=== PATIENT | male | born 1935 | race African-American/Black ===

== ENCOUNTER 2016-12-30 19:36 | Inpatient (IN) | payer OTHER ==
[~2016-12-30] VITALS: Ht 185.4 cm; Wt 88.5 kg
[~2016-12-30 19:36] MED LIST: Albuterol ud Inhalation HHN ONE; B COMPLEX1 EACH ORAL; Ipratropium 0.02% Inh Soln 2.5ml UD HHN ONE; NORVASC2.5 MG ORAL; OMEPRAZOLE20 M3 ORAL; PRADAXA75 MG ORAL; Pantoprazole Inj IV ONE; UNOBMED
[2016-12-30 20:08] LABS: EOSINOPHILS % (AUTO) 0.1 % (0.0-3.0); LYMPHOCYTES % (AUTO) 13.3 % (20.0-45.0); MEAN CORPUSCULAR HEMOGLOBIN 25.4 PG (27.0-31.0); MEAN CORPUSCULAR HGB CONC 30.8 G/DL (32.0-36.0); MEAN CORPUSCULAR VOLUME 82 FL (80-99); MEAN PLATELET VOLUME 10.1 FL (6.5-10.1); MONOCYTES % (AUTO) 5.8 % (1.0-10.0); NEUTROPHILS % (AUTO) 79.8 % (45.0-75.0); PLATELET COUNT 159 K/UL (150-450); RED BLOOD COUNT 4.08 M/UL (4.70-6.10); RED CELL DISTRIBUTION WIDTH 15.9 % (11.6-14.8); WHITE BLOOD COUNT 7.7 K/UL (4.8-10.8)
[2016-12-30 20:30] LABS: INR 1.1 (0.9-1.1); PROTHROMBIN TIME 11.7 SEC (9.30-11.50)
[2016-12-30 20:38] LABS: TROPONIN I < 0.30 ng/mL (<=0.30)
[2016-12-30 20:41] LABS: ALANINE AMINOTRANSFERASE 22 U/L (3-41); ALBUMIN/GLOBULIN RATIO 1.7 (1.0-2.7); ANION GAP 25 (5-15); ASPARTATE AMINO TRANSFERASE 38 U/L (5-40); CALCIUM 9.2 mg/dL (8.6-10.2); CARBON DIOXIDE 19 mEQ/L (20-30); CHLORIDE 98 mEQ/L (98-107); CREATININE 1.9 mg/dL (0.7-1.2); HEMOLYSIS 48; LIPASE 26 U/L (< 60); POTASSIUM 4.4 mEQ/L (3.4-4.9); SODIUM 142 mEQ/L (135-145); TOTAL PROTEIN 6.7 g/dL (6.6-8.7)
--- NOTE | 2016-12-30 20:48 | Emergency Room Report ---
History of Present Illness General Chief Complaint: Diarrhea Source: Patient, EMS Present Illness HPI Patient presents with black tarry diarrhea for several days. He also complains of weakness and cough. He denies any fevers. He states he is taking a blood thinner at this time but doesn't know the name. When he coughs, he passes stool. Denies any abdominal pain. In the past was no gross he was hospitalized for 6 days with GI bleed. He was on Eliquis at that time and it was stopped. He's also taking iron. He denies any chest pain. He does have some dyspnea exertion and wheezing. The cough is non-productive. No NV. No dizziness. No anxiety. Post pacemaker. Allergies: Coded Allergies: NO KNOWN ALLERGIES (Unverified Allergy, Unknown, 04/18/15) Patient History Past Medical History: see triage record Past Surgical History: pacemaker Social History: Denies: alcohol use Social History Narrative at home with sister helping Reviewed Nursing Documentation: PMH: Agreed, PSxH: Agreed Nursing Documentation-PMH Past Medical History: No History, Except For Hx Cardiac Problems: Yes Hx Hypertension: Yes Hx Pacemaker: Yes Hx Asthma: Yes Hx Cancer: No Hx Gastrointestinal Problems: Yes Hx Neurological Problems: No Review of Systems All Other Systems: negative except mentioned in HPI Physical Exam Vital Signs Date Time Temp Pulse Resp B/P Pulse Ox O2 Delivery O2 Flow Rate FiO2 12/30/16 19:21 106 16 106/71 99 Room Air Sp02 EP Interpretation: reviewed, normal General Appearance: well appearing, no apparent distress, GCS 15 Head: normocephalic Eyes: bilateral eye PERRL, bilateral eye conjunctivae pale ENT: moist mucus membranes Neck: supple Respiratory: chest non-tender, wheezing, expiration, other - pacer L Cardiovascular #1: regular rate, rhythm Cardiovascular #2: 2+ radial (R) Gastrointestinal: normal inspection, normal bowel sounds, non tender, no mass, non-distended Rectal: heme positive stool - black Musculoskeletal: back normal, gait/station normal, normal range of motion Neurologic: alert, oriented x3, grossly normal Psychiatric: mood/affect normal Skin: warm/dry, pallor Medical Decision Making Diagnostic Impression: Primary Impression: GI bleed Qualified Codes: K92.1 - Melena Additional Impressions: Renal insufficiency Bronchospasm Anticoagulation ER Course Patient presents with dyspnea and melanotic stools or guaiac positive. He claims he is on blood thinners but does not know which one. Ddx: PUD, gastritis , medication excess, anemia amongst others. Also he has bronchospasm. Evaluation is emergent with labs, EKG, CXR and abd films. Treatment with IV hydration, protonix, albuterol. The fact it is melena indicates upper GI source of bleeding. He is at higher risk being on blood thinner. Initial hemoglobin is low. CXR with COPD. Renal insufficiency. The patient is improved after breathing treatment. CXR and ABD are unremarkable except for pacemaker and surgical clips in the pelvis. No indication for blood transfusion emergently, however, serial H/H need to be obtained. Reversal of anticoagulation not indicated at this time. The patient is admitted to telemetry the to Dr. Mathew. Laboratory Tests Test 12/30/16 19:40 White Blood Count 7.7 K/UL (4.8-10.8) Red Blood Count 4.08 M/UL (4.70-6.10) L Hemoglobin 10.4 G/DL (14.2-18.0) L Hematocrit 33.6 % (42.0-52.0) L Mean Corpuscular Volume 82 FL (80-99) Mean Corpuscular Hemoglobin 25.4 PG (27.0-31.0) L Mean Corpuscular Hemoglobin Concent 30.8 G/DL (32.0-36.0) L Red Cell Distribution Width 15.9 % (11.6-14.8) H Platelet Count 159 K/UL (150-450) Mean Platelet Volume 10.1 FL (6.5-10.1) Neutrophils (%) (Auto) 79.8 % (45.0-75.0) H Lymphocytes (%) (Auto) 13.3 % (20.0-45.0) L Monocytes (%) (Auto) 5.8 % (1.0-10.0) Eosinophils (%) (Auto) 0.1 % (0.0-3.0) Basophils (%) (Auto) 1.0 % (0.0-2.0) Prothrombin Time 11.7 SEC (9.30-11.50) H Prothrombin Time INR 1.1 (0.9-1.1) PTT 20 SEC (23-33) L Sodium Level 142 mEQ/L (135-145) Potassium Level 4.4 mEQ/L (3.4-4.9) Chloride Level 98 mEQ/L (98-107) Carbon Dioxide Level 19 mEQ/L (20-30) L Anion Gap 25 (5-15) H Blood Urea Nitrogen 53 mg/dL (7-23) H Creatinine 1.9 mg/dL (0.7-1.2) H Estimate Glomerular Filtration Rate mL/min (>60) Glucose Level 218 mg/dL (74-106) H Calcium Level 9.2 mg/dL (8.6-10.2) Total Bilirubin 0.7 mg/dL (0.0-1.2) Aspartate Amino Transferase (AST) 38 U/L (5-40) Alanine Aminotransferase (ALT) 22 U/L (3-41) Alkaline Phosphatase 75 U/L (40-129) Total Creatine Kinase 38 U/L (38-174) Troponin I < 0.30 ng/mL (<=0.30) Total Protein 6.7 g/dL (6.6-8.7) Albumin 4.3 g/dL (3.5-5.2) Globulin 2.4 g/dL Albumin/Globulin Ratio 1.7 (1.0-2.7) Lipase 26 U/L (< 60) EKG Diagnostic Results Rate: tachycardiac ST Segments: no acute changes ASA given to the pt in ED: Yes Rhythm Strip Diag. Results EP Interpretation: yes Rhythm: NSR, no PVC's, no ectopy Chest X-Ray Diagnostic Results EP Interpretation: Yes Findings: no consolidation, no effusion, no pneumothorax, no acute cardiopulmonary disease, other - pacer Number of Views: 1 Other X-Ray Diagnostic Results Other X-Ray Diagnostic Results : X-Ray Ordered: abd EP Interpretation: Yes Findings: other - pelvic clips, bony changes Number of Views: 1 Last Vital Signs Date Time Temp Pulse Resp B/P Pulse Ox O2 Delivery O2 Flow Rate FiO2 12/31/16 00:27 98 12/30/16 23:38 97.3 24 102/74 98 Room Air 21 Status: improved Disposition: ADMITTED INPATIENT Condition: Serious Referrals: [facility],REFERRING (PCP) Munir Quintana M.D. Dec 30, 2016 20:48
[2016-12-30 21:22] VITALS: BP 118/76
[2016-12-30] MEDS ORDERED: Nitroglycerin Subl 0.4mg tab (Bottle Of 25) SL PRN (21:45)
[2016-12-30] MEDS ORDERED: Miralax 17gm pkt ORAL PRN (21:45)
[2016-12-30] MEDS ORDERED: Mylanta II UD 30ml ORAL PRN (21:45)
[2016-12-30] MEDS ORDERED: Morphine Sulfate 2mg/ml Inj IVP PRN (21:45)
[2016-12-30] MEDS: D5NS 1,000 ML IV SCH (22:01)
[2016-12-30] MEDS ORDERED: Phytonadione 10 MG in D5W 55 ML IVPB ONE (23:00)
[2016-12-30 23:19] VITALS: BP 102/74
[2016-12-31] VITALS: BP 117/77
[2016-12-31 04:30] VITALS: BP 124/66
[2016-12-31 05:33] LABS: BASOPHILS % (AUTO) 0.6 % (0.0-2.0); EOSINOPHILS % (AUTO) 0.2 % (0.0-3.0); LYMPHOCYTES % (AUTO) 15.4 % (20.0-45.0); MEAN CORPUSCULAR HEMOGLOBIN 25.5 PG (27.0-31.0); MEAN CORPUSCULAR HGB CONC 31.2 G/DL (32.0-36.0); MEAN CORPUSCULAR VOLUME 82 FL (80-99); MEAN PLATELET VOLUME 10.5 FL (6.5-10.1); NEUTROPHILS % (AUTO) 73.8 % (45.0-75.0); PLATELET COUNT 116 K/UL (150-450); RED BLOOD COUNT 3.13 M/UL (4.70-6.10); RED CELL DISTRIBUTION WIDTH 16.1 % (11.6-14.8); WHITE BLOOD COUNT 6.2 K/UL (4.8-10.8)
[2016-12-31 06:00] LABS: ALANINE AMINOTRANSFERASE 20 U/L (3-41); ALBUMIN/GLOBULIN RATIO 2.1 (1.0-2.7); AMYLASE 46 U/L (10-110); ANION GAP 16 (5-15); ASPARTATE AMINO TRANSFERASE 29 U/L (5-40); CALCIUM 8.4 mg/dL (8.6-10.2); CARBON DIOXIDE 23 mEQ/L (20-30); CHLORIDE 107 mEQ/L (98-107); CREATININE 1.6 mg/dL (0.7-1.2); HEMOLYSIS 6; LIPASE 23 U/L (< 60); POTASSIUM 3.6 mEQ/L (3.4-4.9); SODIUM 146 mEQ/L (135-145); TOTAL PROTEIN 5.3 g/dL (6.6-8.7)
[2016-12-31 07:33] LABS: INR 1.1 (0.9-1.1); PROTHROMBIN TIME 11.2 SEC (9.30-11.50)
[2016-12-31 08:00] VITALS: BP 96/62
--- NOTE | 2016-12-31 09:05 | Diagnostic Imaging Report ---
Indications: COUGH Technique: AP chest Findings: Comparison: 04/18/15 Elevation of the apparent hemidiaphragm persists, currently demonstrating a somewhat straighter margin. Linear densities in the overlying right lung base persist. Focal elevation left hemidiaphragm persists. Visualized portions of left lung, bilateral pleural surfaces remain clear. Cardiac silhouette partially obscured. Pulmonary vasculature remains within normal limits. Calcification and elongation thoracic aorta unchanged. Pacemaker now noted in left chest wall, a dual endovascular leads entering the left subclavian vein, tips in the regions of right atrium and ventricle, respectively. IMPRESSION: Persistent elevation apparent right hemidiaphragm, nonspecific. Flattening of hemidiaphragmatic border is well-circumscribed dense. Adjacent atelectasis must be considered. Otherwise no evidence of acute cardio pulmonary disease, unchanged Interval pacemaker placement Stable chronic changes as described
[2016-12-31] MEDS: D5NS 1,000 ML IV SCH ×2 (09:33→17:16)
[2016-12-31 11:15] LABS: APPEARANCE,URINE CLEAR; KETONES,URINE NEGATIVE (NEGATIVE); LEUKOCYTE ESTERASE ,URINE NEGATIVE (NEGATIVE); NITRITE,URINE NEGATIVE (NEGATIVE); PH,URINE 5 (4.5-8.0); PROTEIN,URINE 1+ (NEGATIVE); UROBILINOGEN,URINE NORMAL MG/DL (0.0-1.0)
[2016-12-31 11:17] LABS: BACTERIA,URINE OCCASIONAL /HPF; RBC,URINE 0-2 /HPF (0 - 0); SQUAMOUS EPITHELIAL CELL,UR OCCASIONAL /LPF (NONE/OCC); WBC,URINE 0-2 /HPF (0 - 0)
--- NOTE | 2016-12-31 12:01 | History and Physical ---
History of Present Illness General Date patient seen: Dec 31, 2016 Time patient seen: 11:00 Reason for Hospitalization: melena, cough Present Illness HPI 81 y/old male presented with black tarry diarrhea for several days. He also complained of weakness and cough. Denied fevers, chills . Patient on blood thinner, but does not remember the name When he coughs, he passes stool. Cough nonproductive No hemoptysis . No wheezing He had some dyspnea on exertion He denied any chest pain. The cough was non-productive. Denies any abdominal pain. No n/v/no hematemesis No dizziness. No anxiety. In the past was hospitalized for 6 days with GI bleed. He was on Eliquis at that time and it was stopped. He' is taking iron. Workup in ED revealed HH 10.4/33.6, this am -8.0/25.5 BUN/creat-53/1.9 troponin negative CXR negative with evidence of pacemaker, COPD troponin negative, SR on tele, no ischemic changes patient was given IVF, bronchodilators, Protonix patient was admitted for further management Allergies: Coded Allergies: NO KNOWN ALLERGIES (Unverified Allergy, Unknown, 04/18/15) Medication History Scheduled Amlodipine Besylate (Norvasc), 2.5 MG ORAL DAILY, (Reported) Dabigatran Etexilate Mesylate (Pradaxa), 75 MG ORAL EVERY 12 HOURS, (Reported) Omeprazole (Omeprazole), 20 MG ORAL BID, (Reported) Vitamin B Complex (B Complex), 1 TAB ORAL DAILY, (Reported) Miscellaneous Medications Unable to Obtain Medications (Unable To Obtain Meds), (Reported) Patient History History Provided By: Patient Healthcare decision maker Resuscitation status Full Code Advanced Directive on File Past Medical/Surgical History Past Medical/Surgical History: (1) GI bleed (2) Anemia associated with acute blood loss (3) Syncope (4) CHF (congestive heart failure) (5) HTN (hypertension) (6) Asthma (7) Pacemaker Review of Systems Constitutional: Reports: weakness Eye: Reports: no symptoms ENT: Reports: no symptoms Respiratory: Reports: see HPI Cardiovascular: Reports: no symptoms Gastrointestinal: Reports: see HPI Genitourinary: Reports: no symptoms Skin: Reports: no symptoms Psychiatric: Reports: no symptoms Neurological: Reports: no symptoms Endocrine: Reports: no symptoms Hematologic/Lymphatic: Reports: see HPI Physical Exam General Appearance: alert Lines, tubes and drains: peripheral HEENT: normocephalic, atraumatic, anicteric, mucous membranes moist Neck: non-tender, supple Respiratory/Chest: chest wall non-tender, lungs clear - with decerased air enetry , no respiratory distress, no accessory muscle use Cardiovascular/Chest: normal rate, regular rhythm, no JVD Abdomen: normal bowel sounds, non tender, soft Extremities: non-tender, no calf tenderness, normal capillary refill Skin Exam: warm/dry Neurologic: alert, responsive Musculoskeletal: normal muscle bulk Last 24 Hour Vital Signs Date Time Temp Pulse Resp B/P Pulse Ox O2 Delivery O2 Flow Rate FiO2 12/31/16 09:00 87 96/62 12/31/16 08:00 82 12/31/16 08:00 96.8 87 19 96/62 100 Room Air 12/31/16 04:30 97.7 85 20 124/66 96 Room Air 12/31/16 03:59 90 12/31/16 00:27 98 12/31/16 00:00 98.2 100 20 117/77 97 Room Air 12/30/16 23:38 97.3 106 24 102/74 98 Room Air 21 12/30/16 23:19 106 24 102/74 98 Room Air 12/30/16 21:22 97.3 90 24 118/76 100 Room Air 12/30/16 20:50 93 20 100 Room Air 21 12/30/16 20:49 92 20 100 Room Air 21 12/30/16 20:48 92 20 Room Air 21 12/30/16 19:21 106 16 106/71 99 Room Air Intake and Output 12/30/16 12/31/16 19:00 07:00 Intake Total 1856 ml Output Total 600 ml Balance 1256 ml Intake IV Total 1856 ml Output Urine Total 600 ml # Bowel Movements 1 Laboratory Tests Test 12/30/16 19:40 12/31/16 04:59 12/31/16 06:42 12/31/16 06:47 White Blood Count 7.7 K/UL (4.8-10.8) 6.2 K/UL (4.8-10.8) Red Blood Count 4.08 M/UL (4.70-6.10) L 3.13 M/UL (4.70-6.10) L Hemoglobin 10.4 G/DL (14.2-18.0) L 8.0 G/DL (14.2-18.0) L Hematocrit 33.6 % (42.0-52.0) L 25.5 % (42.0-52.0) L Mean Corpuscular Volume 82 FL (80-99) 82 FL (80-99) Mean Corpuscular Hemoglobin 25.4 PG (27.0-31.0) L 25.5 PG (27.0-31.0) L Mean Corpuscular Hemoglobin Concent 30.8 G/DL (32.0-36.0) L 31.2 G/DL (32.0-36.0) L Red Cell Distribution Width 15.9 % (11.6-14.8) H 16.1 % (11.6-14.8) H Platelet Count 159 K/UL (150-450) 116 K/UL (150-450) L Mean Platelet Volume 10.1 FL (6.5-10.1) 10.5 FL (6.5-10.1) H Neutrophils (%) (Auto) 79.8 % (45.0-75.0) H 73.8 % (45.0-75.0) Lymphocytes (%) (Auto) 13.3 % (20.0-45.0) L 15.4 % (20.0-45.0) L Monocytes (%) (Auto) 5.8 % (1.0-10.0) 10.0 % (1.0-10.0) Eosinophils (%) (Auto) 0.1 % (0.0-3.0) 0.2 % (0.0-3.0) Basophils (%) (Auto) 1.0 % (0.0-2.0) 0.6 % (0.0-2.0) Prothrombin Time 11.7 SEC (9.30-11.50) H 11.2 SEC (9.30-11.50) Prothromb Time International Ratio 1.1 (0.9-1.1) 1.1 (0.9-1.1) Activated Partial Thromboplast Time 20 SEC (23-33) L 22 SEC (23-33) L Sodium Level 142 mEQ/L (135-145) 146 mEQ/L (135-145) H Potassium Level 4.4 mEQ/L (3.4-4.9) 3.6 mEQ/L (3.4-4.9) Chloride Level 98 mEQ/L (98-107) 107 mEQ/L (98-107) Carbon Dioxide Level 19 mEQ/L (20-30) L 23 mEQ/L (20-30) Anion Gap 25 (5-15) H 16 (5-15) H Blood Urea Nitrogen 53 mg/dL (7-23) H 54 mg/dL (7-23) H Creatinine 1.9 mg/dL (0.7-1.2) H 1.6 mg/dL (0.7-1.2) H Estimat Glomerular Filtration Rate mL/min (>60) mL/min (>60) Glucose Level 218 mg/dL (74-106) H 148 mg/dL (74-106) H Calcium Level 9.2 mg/dL (8.6-10.2) 8.4 mg/dL (8.6-10.2) L Total Bilirubin 0.7 mg/dL (0.0-1.2) 0.4 mg/dL (0.0-1.2) Aspartate Amino Transf (AST/SGOT) 38 U/L (5-40) 29 U/L (5-40) Alanine Aminotransferase (ALT/SGPT) 22 U/L (3-41) 20 U/L (3-41) Alkaline Phosphatase 75 U/L (40-129) 60 U/L (40-129) Total Creatine Kinase 38 U/L (38-174) Troponin I < 0.30 ng/mL (<=0.30) Total Protein 6.7 g/dL (6.6-8.7) 5.3 g/dL (6.6-8.7) L Albumin 4.3 g/dL (3.5-5.2) 3.6 g/dL (3.5-5.2) Globulin 2.4 g/dL 1.7 g/dL Albumin/Globulin Ratio 1.7 (1.0-2.7) 2.1 (1.0-2.7) Lipase 26 U/L (< 60) 23 U/L (< 60) Amylase Level 46 U/L (10-110) Urine Color Pale yellow Urine Appearance Clear Urine pH 5 (4.5-8.0) Urine Specific Paulina 1.010 (1.005-1.035) Urine Protein 1+ (NEGATIVE) H Urine Glucose (UA) Negative (NEGATIVE) Urine Ketones Negative (NEGATIVE) Urine Occult Blood Negative (NEGATIVE) Urine Nitrite Negative (NEGATIVE) Urine Bilirubin Negative (NEGATIVE) Urine Urobilinogen Normal MG/DL (0.0-1.0) Urine Leukocyte Esterase Negative (NEGATIVE) Urine RBC 0-2 /HPF (0 - 0) H Urine WBC 0-2 /HPF (0 - 0) Urine Squamous Epithelial Cells Occasional /LPF Urine Bacteria Occasional /HPF (NONE) Urine Random Sodium 29 mmol/L Urine Potassium Timed 43 mmol/L Urine Eosinophils None seen Urine Osmolality Pending Urine Random Chloride 25 mmol/L Height (Feet): 6 Height (Inches): 2.00 Weight (Pounds): 195 Medications Current Medications Medications (Trade) Dose Ordered Sig/Katya Route PRN Reason Start Time Stop Time Status Last Admin Dose Admin Acetaminophen (Tylenol) 650 mg Q4H PRN ORAL T>100.5 12/30/16 21:45 01/29/17 21:44 Al Hydroxide/Mg Hydroxide (Mylanta II) 30 ml Q6H PRN ORAL dyspepsia 12/30/16 21:45 01/29/17 21:44 Amlodipine Besylate (Norvasc) 2.5 mg DAILY ORAL 12/31/16 09:00 01/30/17 08:59 Dextrose STAT PRN IV Hypoglycemia 12/30/16 21:45 01/29/17 21:44 Dextrose/Sodium Chloride (D5ns) 1,000 ml @ 100 mls/hr Q10H IV 12/30/16 22:00 01/29/17 21:59 12/31/16 09:33 Diphenhydramine HCl (Benadryl) 25 mg Q6H PRN ORAL Itching/Pruritis 12/30/16 21:45 01/29/17 21:44 Morphine Sulfate (Morphine Sulfate) 2 mg Q4H PRN IVP Severe Pain (Pain Scale 7-10) 12/30/16 21:45 01/06/17 21:44 Nitroglycerin (Ntg) 0.4 mg Q5M X 3 DOSES PRN SL Prn Chest Pain 12/30/16 21:45 01/29/17 21:44 Ondansetron HCl (Zofran) 4 mg Q6H PRN IVP Nausea & Vomiting 12/30/16 21:45 01/29/17 21:44 Polyethylene Glycol (Miralax) 17 gm HSPRN PRN ORAL Constipation 12/30/16 21:45 01/29/17 21:44 Temazepam (Restoril) 15 mg HSPRN PRN ORAL Insomnia 12/30/16 21:45 01/06/17 21:44 12/31/16 01:26 Assessment/Plan Assessment/Plan ASSESSMENT GI bleeding/melena anemia 2 to GI bleeding acute renal failure bronchitis hx of asthma pacemaker HTN PLAN OF CARE tele IVF GI eval stool OB, CEA anemia workup transfuse Hgb below 8 monitor renal parameters, lytes, correct as needed, avoid nephrotoxic renal US O2 HHN prn antitussive prn CXR with atelectasis, no acute process otherwise fup with CXR BP management with low dose of CCB troponin negative , SR on tele GI prophylaxis case discussed and evaluated by supervising physician Narinder Vera)Amada NP Dec 31, 2016 12:01
[2016-12-31] MEDS ORDERED: Promethazine/Codeine 5ml UD ORAL PRN (15:30)
[2016-12-31 16:00] VITALS: BP 92/65
[2016-12-31 20:00] VITALS: BP 101/58
[2017-01-01] VITALS (10 sets, daily range): BP systolic 101–111; BP diastolic 56–79
[2017-01-01] MEDS: D5NS 1,000 ML IV SCH ×3 (03:53→21:23)
[2017-01-01 07:41] LABS: MEAN CORPUSCULAR HEMOGLOBIN 24.4 PG (27.0-31.0); MEAN CORPUSCULAR HGB CONC 30.1 G/DL (32.0-36.0); MEAN CORPUSCULAR VOLUME 81 FL (80-99); MEAN PLATELET VOLUME 10.4 FL (6.5-10.1); PLATELET COUNT 89 K/UL (150-450); RED BLOOD COUNT 2.17 M/UL (4.70-6.10); RED CELL DISTRIBUTION WIDTH 16.9 % (11.6-14.8); WHITE BLOOD COUNT 4.7 K/UL (4.8-10.8)
[2017-01-01 08:12] LABS: INR 1.1 (0.9-1.1); PROTHROMBIN TIME 11.4 SEC (9.30-11.50)
[2017-01-01 08:21] LABS: HEMOLYSIS 2; IRON 105 ug/dL (59-158); TOTAL IRON BINDING CAPACITY 210 ug/dL (250-400)
[2017-01-01 08:22] LABS: ALANINE AMINOTRANSFERASE 25 U/L (3-41); ALBUMIN/GLOBULIN RATIO 1.8 (1.0-2.7); ANION GAP 13 (5-15); ASPARTATE AMINO TRANSFERASE 30 U/L (5-40); CALCIUM 7.8 mg/dL (8.6-10.2); CARBON DIOXIDE 22 mEQ/L (20-30); CHLORIDE 114 mEQ/L (98-107); CREATININE 1.1 mg/dL (0.7-1.2); LACTATE DEHYDROGENASE 113 U/L (135-230); MAGNESIUM 1.1 mg/dL (1.7-2.5); POTASSIUM 3.5 mEQ/L (3.4-4.9); SODIUM 149 mEQ/L (135-145); TOTAL PROTEIN 4.8 g/dL (6.6-8.7)
[2017-01-01 09:38] LABS: ERYTHROCYTE SEDIMENTATION RATE 8 MM/HR (0-20); PATH BLOOD SMEAR/OMC SENT TO PATHOLOGIST
--- NOTE | 2017-01-01 10:11 | Pre-Procedure Note/Attestation ---
Pre-Procedure Note/Attestation Complete Prior to Procedure Planned Procedure: not applicable Procedure Narrative: egd Indications for Procedure Pre-Operative Diagnosis: gib Attestation I attest that I discussed the nature of the procedure; its benefits; risks and complications; and alternatives (and the risks and benefits of such alternatives ), prior to the procedure, with the patient (or the patient's legal sales representative printing supplies). I attest that, if there was a reasonable possibility of needing a blood transfusion, the patient (or the patient's legal sales representative printing supplies) was given the [facility] standardized written summary, pursuant to the Sebastián Noa Blood Safety Act ([place] Health and Safety Code # 1645, as amended). I attest that I re-evaluated the patient just prior to the surgery and that there has been no change in the patient's H&P, except as documented below: AXEL SOLORIO January 01, 2017 10:11
[2017-01-01 10:26] LABS: ANISOCYTOSIS 1+; BAND NEUTROPHILS % (MANUAL) 0 % (0-8); BASOPHILS % (MANUAL) 0 % (0-2); EOSINOPHILS % (MANUAL) 0 % (0-3); HYPOCHROMASIA 2+; LYMPHOCYTES % (MANUAL) 11 % (20-45); MICROCYTES 1+; NEUTROPHILS % (MANUAL) 82 % (45-75); NUCLEATED RED BLOOD CELLS 2 /100 WBC; PLATELET ESTIMATE DECREASED; PLATELET MORPHOLOGY NORMAL; POLYCHROMASIA 1+; TOTAL CELLS COUNTED 100
--- NOTE | 2017-01-01 10:32 | Cardiology Report ---
APPROVED REPORT EKG Measurement Heart [id number] Atrial flutter with 2:1 AV block Low voltage QRS Abnormal ECG
--- NOTE | 2017-01-01 10:33 | Diagnostic Imaging Report ---
Indications: Abdominal pain. Technique: AP view of the abdomen Findings: Comparison: None. Bowel gas pattern is unremarkable. Scattered arterial mural calcifications. No abnormal soft tissue densities are demonstrated. Disc space narrowing with marginal osteophyte formation, facet hypertrophy lower lumbar spine. Pelvic surgical clips. Pacemaker leads overlie heart.. IMPRESSION: No evidence of acute abdominopelvic disease Arteriosclerosis Degenerative spondylosis Previous pelvic surgery, pacemaker placement.
--- NOTE | 2017-01-01 10:43 | Diagnostic Imaging Report ---
Indication: Abnormal elevated renal function tests Technique: Grayscale and duplex images of the kidneys, retroperitoneum, and bladder were obtained. Comparison:04/10/2011 Findings: Right kidney measures 10.3 cm in length. Left kidney measures 12.1 cm in length. Both kidneys demonstrate normal echogenicity. No hydronephrosis. No focal abnormality. Normal inferior vena cava. Bladder is normal. Impression: negative.
[2017-01-01 10:50] LABS: RETICULOCYTE COUNT 3.9 % (0.0-2.0)
[2017-01-01] MEDS ORDERED: Propofol 10mg/ml 20ml IV ONE (11:45)
[2017-01-01] MEDS ORDERED: Lidocaine 1% MPF 10mg/ml 5ml ONE (11:45)
--- NOTE | 2017-01-01 11:57 | Diagnostic Imaging Report ---
APPROVED REPORT CPT Code: 31999 Present Symptoms Lower Extremity Pain: Bilateral BILATERAL: Imaging reveals a patent deep venous system bilaterally. There is no evidence of thrombus within the femoral, popliteal or tibial segments. The greater saphenous veins are also within normal limits. Doppler indicates normal spontaneous flow within these segments.
--- NOTE | 2017-01-01 12:17 | Anethesia Preoperative Eval ---
Anesthesia Pre-op PMH/ROS General Date of Evaluation: January 01, 2017 Time of Evaluation: 12:16 Anesthesiologist: jak ASA Score: ASA 3 Mallampati Score Class I : Soft palate, uvula, fauces, pillars visible Class II: Soft palate, uvula, fauces visible Class III: Soft palate, base of uvula visible Class IV: Only hard plate visible Mallampati Classification: Class III Surgeon: ana maria Diagnosis: GI Bleed Surgical Procedure: EGD Anesthesia History: none Family History: no anesthesia problems Allergies: Coded Allergies: NO KNOWN ALLERGIES (Unverified Allergy, Unknown, 04/18/15) Medications: see eMAR Past Medical History Cardiovascular: Reports: CAD, HTN, other - cardiac defib Gastrointestinal/Genitourinary: Reports: GERD Endocrine: Denies: DM, hypothyroidism, other, steroids HEENT: Denies: ALTURAS (L), ALTURAS (R), cataract (L), cataract (R), glaucoma, other Hematology/Immune: Reports: anemia Musculoskeletal/Integumentary: Denies: DDD, DJD, OA, RA, edema, other PSxH Narrative: valve replaced Anesthesia Pre-op Phys. Exam Physician Exam Last Vital Signs Date Time Temp Pulse Resp B/P Pulse Ox O2 Delivery O2 Flow Rate FiO2 01/01/17 12:06 96.1 81 19 101/66 98 Room Air 12/30/16 23:38 21 Constitutional: NAD Neurologic: CN 2-12 intact Cardiovascular: RRR Respiratory: CTA Gastrointestinal: S/NT/ND Airway Exam Mallampati Classification 3 Mallampati Score: Class III MO: limited Teeth: missing Anesthesia Pre-op A/P Labs Hematology Test 01/01/17 07:20 White Blood Count 4.7 K/UL (4.8-10.8) L Red Blood Count 2.17 M/UL (4.70-6.10) L Hemoglobin 5.3 G/DL (14.2-18.0) Hematocrit 17.6 % (42.0-52.0) #L Mean Corpuscular Volume 81 FL (80-99) Mean Corpuscular Hemoglobin 24.4 PG (27.0-31.0) L Mean Corpuscular Hemoglobin Concent 30.1 G/DL (32.0-36.0) L Red Cell Distribution Width 16.9 % (11.6-14.8) H Platelet Count 89 K/UL (150-450) L Mean Platelet Volume 10.4 FL (6.5-10.1) H Neutrophils (%) (Auto) % (45.0-75.0) Lymphocytes (%) (Auto) % (20.0-45.0) Monocytes (%) (Auto) % (1.0-10.0) Eosinophils (%) (Auto) % (0.0-3.0) Basophils (%) (Auto) % (0.0-2.0) Differential Total Cells Counted 100 Neutrophils % (Manual) 82 % (45-75) H Lymphocytes % (Manual) 11 % (20-45) L Monocytes % (Manual) 7 % (1-10) Eosinophils % (Manual) 0 % (0-3) Basophils % (Manual) 0 % (0-2) Band Neutrophils 0 % (0-8) Nucleated Red Blood Cells 2 /100 WBC Platelet Estimate Decreased L Platelet Morphology Normal Polychromasia 1+ Hypochromasia 2+ Anisocytosis 1+ Microcytosis 1+ Erythrocyte Sedimentation Rate 8 MM/HR (0-20) Reticulocyte Count 3.9 % (0.0-2.0) H Coagulation Test 01/01/17 07:20 Prothrombin Time 11.4 SEC (9.30-11.50) Prothromb Time International Ratio 1.1 (0.9-1.1) Activated Partial Thromboplast Time 22 SEC (23-33) L Chemistry Test 12/31/16 13:00 01/01/17 07:20 Plasma/Serum Osmolality Pending Sodium Level 149 mEQ/L (135-145) H Potassium Level 3.5 mEQ/L (3.4-4.9) Chloride Level 114 mEQ/L (98-107) H Carbon Dioxide Level 22 mEQ/L (20-30) Anion Gap 13 (5-15) Blood Urea Nitrogen 38 mg/dL (7-23) H Creatinine 1.1 mg/dL (0.7-1.2) Estimat Glomerular Filtration Rate mL/min (>60) Glucose Level 143 mg/dL (74-106) H Calcium Level 7.8 mg/dL (8.6-10.2) L Magnesium Level 1.1 mg/dL (1.7-2.5) L Iron Level 105 ug/dL (59-158) Total Iron Binding Capacity 210 ug/dL (250-400) L Percent Iron Saturation 50 % (15-50) Unsaturated Iron Binding 105 ug/dL (112-346) L Total Bilirubin 0.2 mg/dL (0.0-1.2) Aspartate Amino Transf (AST/SGOT) 30 U/L (5-40) Alanine Aminotransferase (ALT/SGPT) 25 U/L (3-41) Alkaline Phosphatase 48 U/L (40-129) Lactate Dehydrogenase 113 U/L (135-230) L Total Protein 4.8 g/dL (6.6-8.7) L Albumin 3.1 g/dL (3.5-5.2) L Globulin 1.7 g/dL Albumin/Globulin Ratio 1.8 (1.0-2.7) Folate Pending Free Triiodothyronine Pending Cortisol Pending Studies Pre-op Studies: EKG - ST Risk Assessment & Plan Plan: mac Pre-Antibiotics Drug: none PING JON CRNA January 01, 2017 12:17
--- NOTE | 2017-01-01 12:19 | Immediate Post-Op Evaluation ---
Immediate Post-Op Evalulation Immediate Post-Op Evalulation Procedure: EGD Date of Evaluation: January 01, 2017 Time of Evaluation: 11:00 IV Fluids: 300 Blood Products: 100 Blood Pressure Systolic: 107 Blood Pressure Diastolic: 56 Pulse Rate: 93 Respiratory Rate: 14 O2 Sat by Pulse Oximetry: 97 Temperature (Fahrenheit): 97.9 Nausea: No Vomiting: No Complications none Patient Status: awake, reacts, patent Hydration Status: adequate Drug: none PING JON CRNA January 01, 2017 12:19
--- NOTE | 2017-01-01 12:22 | 48 Hour Post Anesthesia Eval ---
Post Anesthesia Evaluation Procedure: EGD Date of Evaluation: January 01, 2017 Time of Evaluation: 12:21 Blood Pressure Systolic: 109 0: 66 Pulse Rate: 97 Respiratory Rate: 14 O2 Sat by Pulse Oximetry: 97 Airway: patent Nausea: No Vomiting: No Hydration Status: adequate Mental Status/LOC: patient returned to baseline Post-Anesthesia Complications: none Follow-up care needed: N/A PING JON CRNA January 01, 2017 12:22
--- NOTE | 2017-01-01 14:04 | Endoscopy Procedure Note ---
Endoscopy Procedure Note Indication for Procedure: gib Procedures Performed: EGD Operative Findings/Diagnosis: shallow duodenal ulcer Specimen: yes Pt Tolerated Procedure Well: Yes Estimated Blood Loss: none Anesthesiologist: roque Anesthesia: MAC Implant(s) used?: No 50 yrs or older w/o bx or poly: Not Applicable 10yrs. F/U not recommended: Not Applicable AXEL SOLORIO January 01, 2017 14:04
--- NOTE | 2017-01-01 15:22 | Pulmonology Progress Note ---
Assessment/Plan Problems: (1) Hemorrhagic shock (2) ATN (acute tubular necrosis) (3) Pacemaker (4) GI bleed Assessment/Plan npo prbc prn endoscopy was negative colonoscopy negative check electrolytes renal function improving Subjective ROS Limited/Unobtainable: No Interval Events: comfortable, nad, recieivng blood Allergies: Coded Allergies: NO KNOWN ALLERGIES (Unverified Allergy, Unknown, 04/18/15) Objective Last 24 Hour Vital Signs Date Time Temp Pulse Resp B/P Pulse Ox O2 Delivery O2 Flow Rate FiO2 01/01/17 12:39 98.0 81 20 105/61 100 Room Air 01/01/17 12:22 97 14 97 01/01/17 12:19 93 14 97 01/01/17 12:18 94 20 104/79 100 Room Air 01/01/17 12:13 94 20 109/66 100 Simple Mask 8.0 01/01/17 12:08 97.9 98 20 107/56 100 Simple Mask 8.0 01/01/17 12:06 96.1 81 19 101/66 98 Room Air 01/01/17 09:22 84 104/64 01/01/17 08:00 78 01/01/17 08:00 96.4 84 19 104/64 97 Room Air 01/01/17 04:00 84 01/01/17 04:00 97.2 84 20 111/67 99 Room Air 01/01/17 00:00 97.5 84 20 105/66 95 Room Air 01/01/17 00:00 87 12/31/16 20:00 86 12/31/16 20:00 98.2 90 20 101/58 95 Room Air 12/31/16 16:00 86 12/31/16 16:00 97.0 94 18 92/65 65 Room Air Intake and Output 12/31/16 01/01/17 19:00 07:00 Intake Total 1100 ml 1112 ml Output Total 300 ml 315 ml Balance 800 ml 797 ml IV Total 1100 ml 1112 ml Output Urine Total 300 ml 315 ml General Appearance: WD/WN HEENT: normocephalic, atraumatic Respiratory/Chest: chest wall non-tender, lungs clear Cardiovascular: normal peripheral pulses, normal rate Abdomen: normal bowel sounds, no organomegaly Genitourinary: normal external genitalia Extremities: no cyanosis, no clubbing Skin: no lesions Neurologic/Psychiatric: c consultant II-XII grossly normal Lymphatic: no neck adenopathy Laboratory Tests 01/01/17 07:20: White Blood Count 4.7L, Red Blood Count 2.17L, Hemoglobin 5.3#*L, Hematocrit 17.6#L, Mean Corpuscular Volume 81, Mean Corpuscular Hemoglobin 24.4L, Mean Corpuscular Hemoglobin Concent 30.1L, Red Cell Distribution Width 16.9H, Platelet Count 89L, Mean Platelet Volume 10.4H, Neutrophils (%) (Auto) , Lymphocytes (%) (Auto) , Monocytes (%) (Auto) , Eosinophils (%) (Auto) , Basophils (%) (Auto) , Differential Total Cells Counted 100, Neutrophils % ( Manual) 82H, Lymphocytes % (Manual) 11L, Monocytes % (Manual) 7, Eosinophils % ( Manual) 0, Basophils % (Manual) 0, Band Neutrophils 0, Nucleated Red Blood Cells 2, Platelet Estimate DecreasedL, Platelet Morphology Normal, Polychromasia 1+, Hypochromasia 2+, Anisocytosis 1+, Microcytosis 1+, Erythrocyte Sedimentation Rate 8, Reticulocyte Count 3.9H, Prothrombin Time 11.4 , Prothromb Time International Ratio 1.1, Activated Partial Thromboplast Time 22L, Sodium Level 149H, Potassium Level 3.5, Chloride Level 114H, Carbon Dioxide Level 22, Anion Gap 13, Blood Urea Nitrogen 38H, Creatinine 1.1, Estimat Glomerular Filtration Rate , Glucose Level 143H, Calcium Level 7.8L, Magnesium Level 1.1L, Iron Level 105, Total Iron Binding Capacity 210L, Percent Iron Saturation 50, Unsaturated Iron Binding 105L, Total Bilirubin 0.2, Aspartate Amino Transf (AST/SGOT) 30, Alanine Aminotransferase (ALT/SGPT) 25, Alkaline Phosphatase 48, Lactate Dehydrogenase 113L, Total Protein 4.8L, Albumin 3.1L, Globulin 1.7, Albumin/Globulin Ratio 1.8, Folate [Pending], Free Triiodothyronine [Pending], Cortisol [Pending] Current Medications Medications (Trade) Dose Ordered Sig/Katya Route PRN Reason Start Time Stop Time Status Last Admin Dose Admin Acetaminophen (Tylenol) 650 mg Q4H PRN ORAL T>100.5 12/30/16 21:45 01/29/17 21:44 Al Hydroxide/Mg Hydroxide (Mylanta II) 30 ml Q6H PRN ORAL dyspepsia 12/30/16 21:45 01/29/17 21:44 Amlodipine Besylate (Norvasc) 2.5 mg DAILY ORAL 12/31/16 09:00 01/30/17 08:59 01/01/17 09:22 Bisacodyl (Dulcolax) 10 mg ONCE ONCE ORAL 01/01/17 16:00 01/01/17 16:01 Dextrose STAT PRN IV Hypoglycemia 12/30/16 21:45 01/29/17 21:44 Dextrose/Sodium Chloride (D5ns) 1,000 ml @ 100 mls/hr Q10H IV 12/30/16 22:00 01/29/17 21:59 01/01/17 03:53 Diphenhydramine HCl (Benadryl) 25 mg Q6H PRN ORAL Itching/Pruritis 12/30/16 21:45 01/29/17 21:44 Morphine Sulfate (Morphine Sulfate) 2 mg Q4H PRN IVP Severe Pain (Pain Scale 7-10) 12/30/16 21:45 01/06/17 21:44 Nitroglycerin (Ntg) 0.4 mg Q5M X 3 DOSES PRN SL Prn Chest Pain 12/30/16 21:45 01/29/17 21:44 Ondansetron HCl (Zofran) 4 mg Q6H PRN IVP Nausea & Vomiting 12/30/16 21:45 01/29/17 21:44 Polyethylene Glycol (Miralax) 17 gm HSPRN PRN ORAL Constipation 12/30/16 21:45 01/29/17 21:44 Polyethylene Glycol/ Electrolytes (Nulytely) 4,000 ml ONCE ONCE ORAL 01/01/17 16:00 01/01/17 16:01 Promethazine HCl/ Codeine (Phenergan with Codeine) 5 ml Q4H PRN ORAL For Cough 12/31/16 15:30 01/30/17 15:29 Sodium Phosphate (Fleet's Sodium Phosl Enema) 133 ml ONCE ONCE RECTAL 01/01/17 23:00 01/01/17 23:01 Temazepam (Restoril) 15 mg HSPRN PRN ORAL Insomnia 12/30/16 21:45 01/06/17 21:44 12/31/16 01:26 JUAN DANIEL SMITH January 01, 2017 15:22
[2017-01-01] MEDS ORDERED: Nulytely 4L ORAL ONE (16:00)
[2017-01-01] MEDS ORDERED: Bisacodyl EC 5mg tab ORAL ONE (16:00)
[2017-01-01 17:58] LABS: MEAN CORPUSCULAR HGB CONC 32.4 G/DL (32.0-36.0); MEAN CORPUSCULAR VOLUME 86 FL (80-99); MEAN PLATELET VOLUME 9.6 FL (6.5-10.1); PLATELET COUNT 80 K/UL (150-450); RED CELL DISTRIBUTION WIDTH 15.4 % (11.6-14.8); WHITE BLOOD COUNT 6.4 K/UL (4.8-10.8)
[2017-01-01 21:32] LABS: ANISOCYTOSIS 1+; EOSINOPHILS % (MANUAL) 1 % (0-3); LYMPHOCYTES % (MANUAL) 19 % (20-45); NEUTROPHILS % (MANUAL) 73 % (45-75); NUCLEATED RED BLOOD CELLS 1 /100 WBC; TOTAL CELLS COUNTED 100
[2017-01-01 21:33] LABS: BAND NEUTROPHILS % (MANUAL) 0 % (0-8); BASOPHILS % (MANUAL) 0 % (0-2); HYPOCHROMASIA 2+; MICROCYTES 1+; PLATELET ESTIMATE DECREASED; PLATELET MORPHOLOGY NORMAL; POLYCHROMASIA 1+
--- NOTE | 2017-01-01 22:08 | Procedure Note ---
DATE OF PROCEDURE: 01/01/2017 SURGEON: Ej Orellana M.D. PROCEDURE: Upper endoscopy with biopsy. ANESTHESIA: Per Arin CONTRERAS. INSTRUMENT: Olympus adult flexible upper endoscope. INDICATION: Upper GI bleeding. REASON FOR PROCEDURE: The procedure, risks, benefits, and possible consequences, including hemorrhage, aspiration, perforation and infection, and alternative treatments, were explained to the patient/legal guardian by Dr. Ej Orellana and the patient/legal guardian understood and accepted these risks. DESCRIPTION OF PROCEDURE: After informed consent was obtained and the patient was adequately sedated, Olympus upper endoscope was advanced from mouth into the second portion of the duodenum and retroflexion was performed in the stomach. The patient had evidence of large paraesophageal hernia. We had to maneuver the scope in order to be able to get to the antrum. It was not a very easy passage secondary to large paraesophageal hernia. There was no blood in the proximal stomach. There was no blood in the distal esophagus. There is no evidence of any esophagitis. No esophageal varices. He had clot close to the prepyloric region and there was some blood seen or spots of the blood, but no active bleeding was seen. As soon as we entered the duodenal bulb, we also seen minimum amount of blood in this area too, but nothing was actively bleeding. There was may be a shallow ulceration in the duodenal bulb, but again no obvious source of bleeding at this time. On the way back, we could not biopsy the antrum to rule out H. pylori infection and then slowly and gradually retrieved the scope. The patient tolerated the procedure well without any complication. SUMMARY OF FINDINGS: 1. Paraesophageal hernia. 2. Gastritis, status post biopsy. 3. Shallow duodenal ulceration, unlikely to be the source of bleeding. PLAN: 1. Follow biopsy results and treat accordingly. 2. Transfuse. 3. Plan colonoscopy for tomorrow. I want to thank, Dr. Mathew, for this kind referral. Ej Orellana M.D. DR: DENICE JOB#: [id number] CC: Kaiser Mathew M.D.; Fax#: [phone]
[2017-01-01] MEDS ORDERED: Fleet's Enema 133ml RECTAL ONE (23:00)
[2017-01-02] VITALS (11 sets, daily range): BP systolic 98–128; BP diastolic 58–80
[2017-01-02 07:17] LABS: MEAN CORPUSCULAR HEMOGLOBIN 27.4 PG (27.0-31.0); MEAN CORPUSCULAR HGB CONC 32.4 G/DL (32.0-36.0); MEAN CORPUSCULAR VOLUME 84 FL (80-99); MEAN PLATELET VOLUME 9.8 FL (6.5-10.1); PLATELET COUNT 88 K/UL (150-450); RED BLOOD COUNT 2.88 M/UL (4.70-6.10); RED CELL DISTRIBUTION WIDTH 15.8 % (11.6-14.8); WHITE BLOOD COUNT 4.7 K/UL (4.8-10.8)
[2017-01-02 07:35] LABS: ANION GAP 12 (5-15); CALCIUM 7.9 mg/dL (8.6-10.2); CARBON DIOXIDE 24 mEQ/L (20-30); CHLORIDE 112 mEQ/L (98-107); HEMOLYSIS 3; POTASSIUM 3.3 mEQ/L (3.4-4.9); SODIUM 148 mEQ/L (135-145)
[2017-01-02 07:51] LABS: INR 1.1 (0.9-1.1); PROTHROMBIN TIME 11.1 SEC (9.30-11.50)
[2017-01-02 08:37] LABS: FREE TRIIODOTHYRONINE 2.2 pg/mL (2.0-4.4)
[2017-01-02 08:38] LABS: CORTISOL LC 14.4 ug/dL (.)
[2017-01-02] MEDS ORDERED: Potassium Chloride 40 MEQ in D5W 500ml 550 ML IV ONE ×2 (09:00→18:00)
[2017-01-02 10:21] LABS: ANISOCYTOSIS 1+; BAND NEUTROPHILS % (MANUAL) 0 % (0-8); BASOPHILS % (MANUAL) 0 % (0-2); EOSINOPHILS % (MANUAL) 2 % (0-3); HYPOCHROMASIA 3+; LYMPHOCYTES % (MANUAL) 16 % (20-45); NEUTROPHILS % (MANUAL) 75 % (45-75); NUCLEATED RED BLOOD CELLS 1 /100 WBC; PLATELET ESTIMATE DECREASED; PLATELET MORPHOLOGY NORMAL; POLYCHROMASIA 2+; SPHEROCYTES 2+; TOTAL CELLS COUNTED 100
[2017-01-02] MEDS ORDERED: NS 550ML IV ONE (12:00)
[2017-01-02] MEDS ORDERED: Propofol 10mg/ml 20ml IV ONE (12:20)
[2017-01-02] MEDS ORDERED: LR 1000ml ONE (12:20)
[2017-01-02] MEDS ORDERED: Lidocaine 1% MPF 10mg/ml 5ml ONE (12:20)
--- NOTE | 2017-01-02 12:22 | Pre-Procedure Note/Attestation ---
Pre-Procedure Note/Attestation Complete Prior to Procedure Planned Procedure: not applicable Procedure Narrative: colonoscopy Indications for Procedure Pre-Operative Diagnosis: gib Attestation I attest that I discussed the nature of the procedure; its benefits; risks and complications; and alternatives (and the risks and benefits of such alternatives ), prior to the procedure, with the patient (or the patient's legal financial service representative). I attest that, if there was a reasonable possibility of needing a blood transfusion, the patient (or the patient's legal financial service representative) was given the [facility] standardized written summary, pursuant to the Sebastián Noa Blood Safety Act ([place] Health and Safety Code # 1645, as amended). I attest that I re-evaluated the patient just prior to the surgery and that there has been no change in the patient's H&P, except as documented below: AXEL SOLORIO January 02, 2017 12:22
--- NOTE | 2017-01-02 12:44 | Anethesia Preoperative Eval ---
Anesthesia Pre-op PMH/ROS General Date of Evaluation: January 02, 2017 Time of Evaluation: 12:40 Anesthesiologist: jak ASA Score: ASA 3 Mallampati Score Class I : Soft palate, uvula, fauces, pillars visible Class II: Soft palate, uvula, fauces visible Class III: Soft palate, base of uvula visible Class IV: Only hard plate visible Mallampati Classification: Class III Surgeon: ana maria Diagnosis: GI Bleed Surgical Procedure: colonoscopy Anesthesia History: none Family History: no anesthesia problems Allergies: Coded Allergies: NO KNOWN ALLERGIES (Unverified Allergy, Unknown, 04/18/15) Medications: see eMAR Past Medical History Cardiovascular: Reports: CAD, HTN Pulmonary: Denies: COPD, TRISTAN, asthma, other Gastrointestinal/Genitourinary: Reports: GERD Neurologic/Psychiatric: Denies: CVA, TIA, dementia, depression/anxiety, other Endocrine: Denies: DM, hypothyroidism, other, steroids HEENT: Denies: NAKNEK (L), NAKNEK (R), cataract (L), cataract (R), glaucoma, other Hematology/Immune: Reports: anemia PSxH Narrative: valve replaced Anesthesia Pre-op Phys. Exam Physician Exam Last Vital Signs Date Time Temp Pulse Resp B/P Pulse Ox O2 Delivery O2 Flow Rate FiO2 01/02/17 11:34 97.3 72 20 122/72 98 Room Air 01/01/17 12:13 8.0 12/30/16 23:38 21 Constitutional: NAD Neurologic: CN 2-12 intact Cardiovascular: RRR Respiratory: CTA Gastrointestinal: S/NT/ND Airway Exam Mallampati Score: Class III MO: full ROM: full Dentures: no lower, no upper Anesthesia Pre-op A/P Labs Hematology Test 01/01/17 16:30 01/02/17 06:40 White Blood Count 6.4 K/UL (4.8-10.8) 4.7 K/UL (4.8-10.8) L Red Blood Count 2.80 M/UL (4.70-6.10) L 2.88 M/UL (4.70-6.10) L Hemoglobin 7.8 G/DL (14.2-18.0) #L 7.9 G/DL (14.2-18.0) L Hematocrit 24.2 % (42.0-52.0) #L 24.3 % (42.0-52.0) L Mean Corpuscular Volume 86 FL (80-99) 84 FL (80-99) Mean Corpuscular Hemoglobin 28.0 PG (27.0-31.0) 27.4 PG (27.0-31.0) Mean Corpuscular Hemoglobin Concent 32.4 G/DL (32.0-36.0) 32.4 G/DL (32.0-36.0) Red Cell Distribution Width 15.4 % (11.6-14.8) H 15.8 % (11.6-14.8) H Platelet Count 80 K/UL (150-450) L 88 K/UL (150-450) L Mean Platelet Volume 9.6 FL (6.5-10.1) 9.8 FL (6.5-10.1) Neutrophils (%) (Auto) % (45.0-75.0) % (45.0-75.0) Lymphocytes (%) (Auto) % (20.0-45.0) % (20.0-45.0) Monocytes (%) (Auto) % (1.0-10.0) % (1.0-10.0) Eosinophils (%) (Auto) % (0.0-3.0) % (0.0-3.0) Basophils (%) (Auto) % (0.0-2.0) % (0.0-2.0) Differential Total Cells Counted 100 100 Neutrophils % (Manual) 73 % (45-75) 75 % (45-75) Lymphocytes % (Manual) 19 % (20-45) L 16 % (20-45) L Monocytes % (Manual) 7 % (1-10) 7 % (1-10) Eosinophils % (Manual) 1 % (0-3) 2 % (0-3) Basophils % (Manual) 0 % (0-2) 0 % (0-2) Band Neutrophils 0 % (0-8) 0 % (0-8) Nucleated Red Blood Cells 1 /100 WBC 1 /100 WBC Platelet Estimate Decreased L Decreased L Platelet Morphology Normal Normal Polychromasia 1+ 2+ Hypochromasia 2+ 3+ Anisocytosis 1+ 1+ Microcytosis 1+ Spherocytes 2+ Coagulation Test 01/02/17 06:40 Prothrombin Time 11.1 SEC (9.30-11.50) Prothromb Time International Ratio 1.1 (0.9-1.1) Activated Partial Thromboplast Time 23 SEC (23-33) Chemistry Test 01/02/17 06:40 Sodium Level 148 mEQ/L (135-145) H Potassium Level 3.3 mEQ/L (3.4-4.9) L Chloride Level 112 mEQ/L (98-107) H Carbon Dioxide Level 24 mEQ/L (20-30) Anion Gap 12 (5-15) Blood Urea Nitrogen 31 mg/dL (7-23) H Creatinine 1.0 mg/dL (0.7-1.2) Estimat Glomerular Filtration Rate mL/min (>60) Glucose Level 118 mg/dL (74-106) H Calcium Level 7.9 mg/dL (8.6-10.2) L Risk Assessment & Plan Plan: mac Status Change Before Surgery: No Pre-Antibiotics Drug: none PING JON CRNA January 02, 2017 12:44
--- NOTE | 2017-01-02 12:52 | Endoscopy Procedure Note ---
Endoscopy Procedure Note Indication for Procedure: gib Procedures Performed: colonoscopy Operative Findings/Diagnosis: diverticulosis Specimen: none Pt Tolerated Procedure Well: Yes Estimated Blood Loss: none Anesthesiologist: roque Anesthesia: MAC Implant(s) used?: No 50 yrs or older w/o bx or poly: Not Applicable 10yrs. F/U not recommended: Not Applicable AXEL SOLORIO January 02, 2017 12:52
--- NOTE | 2017-01-02 13:08 | Immediate Post-Op Evaluation ---
Immediate Post-Op Evalulation Immediate Post-Op Evalulation Procedure: Colonoscopy Date of Evaluation: January 02, 2017 Time of Evaluation: 13:00 IV Fluids: 300 Blood Pressure Systolic: 95 Blood Pressure Diastolic: 50 Pulse Rate: 94 Respiratory Rate: 14 O2 Sat by Pulse Oximetry: 100 Temperature (Fahrenheit): 97.4 Nausea: No Vomiting: No Complications none Patient Status: awake, patent Hydration Status: adequate Drug: none PING JON CRNA January 02, 2017 13:08
--- NOTE | 2017-01-02 13:09 | 48 Hour Post Anesthesia Eval ---
Post Anesthesia Evaluation Procedure: Colonoscopy Date of Evaluation: January 02, 2017 Time of Evaluation: 13:09 Blood Pressure Systolic: 110 0: 65 Pulse Rate: 90 O2 Sat by Pulse Oximetry: 100 Airway: patent Nausea: No Vomiting: No Hydration Status: adequate Mental Status/LOC: patient returned to baseline Post-Anesthesia Complications: none Follow-up care needed: N/A PING JON CRNA January 02, 2017 13:09
--- NOTE | 2017-01-02 15:36 | Pulmonology Progress Note ---
Assessment/Plan Problems: (1) Hemorrhagic shock (2) ATN (acute tubular necrosis) (3) Pacemaker (4) GI bleed Assessment/Plan npo prbc prn endoscopy was negative colonoscopy showing diverticulosis d/w dr Kyle check electrolytes renal function improving dc home in am if H/H stable Subjective ROS Limited/Unobtainable: No Interval Events: colonoscopy showed poor prep, diverticulosis Allergies: Coded Allergies: NO KNOWN ALLERGIES (Unverified Allergy, Unknown, 04/18/15) Objective Last 24 Hour Vital Signs Date Time Temp Pulse Resp B/P Pulse Ox O2 Delivery O2 Flow Rate FiO2 01/02/17 15:21 96.3 71 20 128/72 97 Room Air 01/02/17 13:22 98.0 78 20 119/80 98 Room Air 01/02/17 13:09 90 100 01/02/17 13:08 78 20 111/74 98 Room Air 01/02/17 13:08 94 14 100 01/02/17 13:05 79 20 101/75 100 Simple Mask 8.0 01/02/17 13:00 85 20 100/75 100 Simple Mask 8.0 01/02/17 12:55 97.8 91 20 98/70 100 Simple Mask 8.0 01/02/17 11:34 97.3 72 20 122/72 98 Room Air 01/02/17 07:41 97.3 77 20 119/76 100 Room Air 01/02/17 04:00 74 01/02/17 04:00 97.9 88 18 121/74 95 Room Air 01/02/17 00:00 92 01/02/17 00:00 97.7 78 20 102/58 98 Room Air 01/01/17 20:00 91 01/01/17 20:00 97.5 81 20 111/67 98 Room Air 01/01/17 16:16 97.1 77 18 109/68 97 Room Air 01/01/17 16:00 89 Intake and Output 01/01/17 01/02/17 19:00 07:00 Intake Total 1880 ml 700 ml Output Total 400 ml 200 ml Balance 1480 ml 500 ml Intake Oral 1080 ml IV Total 800 ml 700 ml Output Urine Total 400 ml 200 ml # Bowel Movements 6 General Appearance: WD/WN HEENT: normocephalic, atraumatic Respiratory/Chest: chest wall non-tender, lungs clear Cardiovascular: normal peripheral pulses, normal rate Abdomen: normal bowel sounds, soft, non tender Genitourinary: normal external genitalia Extremities: no cyanosis Skin: no rash Neurologic/Psychiatric: lighting director II-XII grossly normal, no motor/sensory deficits Laboratory Tests 01/01/17 16:30: White Blood Count 6.4, Red Blood Count 2.80L, Hemoglobin 7.8#L, Hematocrit 24.2# L, Mean Corpuscular Volume 86, Mean Corpuscular Hemoglobin 28.0, Mean Corpuscular Hemoglobin Concent 32.4, Red Cell Distribution Width 15.4H, Platelet Count 80L, Mean Platelet Volume 9.6, Neutrophils (%) (Auto) , Lymphocytes (%) (Auto) , Monocytes (%) (Auto) , Eosinophils (%) (Auto) , Basophils (%) (Auto) , Differential Total Cells Counted 100, Neutrophils % ( Manual) 73, Lymphocytes % (Manual) 19L, Monocytes % (Manual) 7, Eosinophils % ( Manual) 1, Basophils % (Manual) 0, Band Neutrophils 0, Nucleated Red Blood Cells 1, Platelet Estimate DecreasedL, Platelet Morphology Normal, Polychromasia 1+, Hypochromasia 2+, Anisocytosis 1+, Microcytosis 1+ 01/02/17 00:18: Stool Occult Blood Positive 01/02/17 06:40: White Blood Count 4.7L, Red Blood Count 2.88L, Hemoglobin 7.9L, Hematocrit 24.3L , Mean Corpuscular Volume 84, Mean Corpuscular Hemoglobin 27.4, Mean Corpuscular Hemoglobin Concent 32.4, Red Cell Distribution Width 15.8H, Platelet Count 88L, Mean Platelet Volume 9.8, Neutrophils (%) (Auto) , Lymphocytes (%) (Auto) , Monocytes (%) (Auto) , Eosinophils (%) (Auto) , Basophils (%) (Auto) , Differential Total Cells Counted 100, Neutrophils % ( Manual) 75, Lymphocytes % (Manual) 16L, Monocytes % (Manual) 7, Eosinophils % ( Manual) 2, Basophils % (Manual) 0, Band Neutrophils 0, Nucleated Red Blood Cells 1, Platelet Estimate DecreasedL, Platelet Morphology Normal, Polychromasia 2+, Hypochromasia 3+, Anisocytosis 1+, Spherocytes 2+, Prothrombin Time 11.1, Prothromb Time International Ratio 1.1, Activated Partial Thromboplast Time 23, Sodium Level 148H, Potassium Level 3.3L, Chloride Level 112H, Carbon Dioxide Level 24, Anion Gap 12, Blood Urea Nitrogen 31H, Creatinine 1.0, Estimat Glomerular Filtration Rate , Glucose Level 118H, Calcium Level 7.9L Current Medications Medications (Trade) Dose Ordered Sig/Katya Route PRN Reason Start Time Stop Time Status Last Admin Dose Admin Acetaminophen (Tylenol) 650 mg Q4H PRN ORAL T>100.5 12/30/16 21:45 01/29/17 21:44 Al Hydroxide/Mg Hydroxide (Mylanta II) 30 ml Q6H PRN ORAL dyspepsia 12/30/16 21:45 01/29/17 21:44 Amlodipine Besylate (Norvasc) 2.5 mg DAILY ORAL 12/31/16 09:00 01/30/17 08:59 01/01/17 09:22 Dextrose STAT PRN IV Hypoglycemia 12/30/16 21:45 01/29/17 21:44 Dextrose/Sodium Chloride (D5ns) 1,000 ml @ 100 mls/hr Q10H IV 12/30/16 22:00 01/29/17 21:59 01/01/17 21:23 Diphenhydramine HCl (Benadryl) 25 mg Q6H PRN ORAL Itching/Pruritis 12/30/16 21:45 01/29/17 21:44 Morphine Sulfate (Morphine Sulfate) 2 mg Q4H PRN IVP Severe Pain (Pain Scale 7-10) 12/30/16 21:45 01/06/17 21:44 Nitroglycerin (Ntg) 0.4 mg Q5M X 3 DOSES PRN SL Prn Chest Pain 12/30/16 21:45 01/29/17 21:44 Ondansetron HCl (Zofran) 4 mg Q6H PRN IVP Nausea & Vomiting 12/30/16 21:45 01/29/17 21:44 Polyethylene Glycol (Miralax) 17 gm HSPRN PRN ORAL Constipation 12/30/16 21:45 01/29/17 21:44 Promethazine HCl/ Codeine (Phenergan with Codeine) 5 ml Q4H PRN ORAL For Cough 12/31/16 15:30 01/30/17 15:29 Temazepam (Restoril) 15 mg HSPRN PRN ORAL Insomnia 12/30/16 21:45 01/06/17 21:44 12/31/16 01:26 JUAN DANIEL SMITH January 02, 2017 15:36
[2017-01-02] MEDS: D5NS 1,000 ML IV SCH ×2 (19:07→20:00)
--- NOTE | 2017-01-02 19:49 | Procedure Note ---
DATE OF PROCEDURE: 01/02/2017 SURGEON: Ej Orellana M.D. PROCEDURE: Colonoscopy. ANESTHESIA: Per BOWLING BALL WEIGHER AND PACKER, Arin Tarrillion. INSTRUMENT: Olympus adult flexible colonoscope. INDICATION: Gastrointestinal bleeding. REASON FOR PROCEDURE: The procedure, risks, benefits, and possible consequences, including hemorrhage, aspiration, perforation and infection, and alternative treatments, were explained to the patient/legal guardian by Dr. Ej Orellana and the patient/legal guardian understood and accepted these risks. DESCRIPTION OF PROCEDURE: After informed consent was obtained and the patient was adequately sedated, first rectal exam was performed, which was positive for internal hemorrhoids. Then, the scope was advanced from the rectum into the cecum and into colon. There was a significant diverticulosis. Quality of prep was very poor. We could not pass the regular adult scope. At this time, we switched to the pediatric scope. We were able to pass the sigmoid and get to the proximal ascending colon, but given the poor prep, we could not advance beyond this point. This examination was very limited given poor prep. There was a dark stool throughout the colon. As I mentioned, the patient has significant diverticulosis throughout, especially in the left colon, otherwise we could not see anything else. SUMMARY OF FINDINGS: 1. Poor colonic prep. Incomplete examination secondary to poor prep. 2. Diverticulosis. 3. Internal hemorrhoids. RECOMMENDATIONS: 1. Advance diet. 2. Repeat laboratories. 3. Consider repeat colonoscopy with the prep if needed. I want to thank, Dr. Mathew, for this kind referral. Ej Orellana M.D. DR: DENICE JOB#: [id number] CC: [facility] Mathew M.D.
[2017-01-03] VITALS (8 sets, daily range): BP systolic 108–123; BP diastolic 63–72
[2017-01-03] MEDS: D5NS 1,000 ML IV SCH ×2 (06:00→16:00)
[2017-01-03 07:32] LABS: PROTHROMBIN TIME 10.3 SEC (9.30-11.50)
[2017-01-03 07:37] LABS: ALANINE AMINOTRANSFERASE 21 U/L (3-41); ALBUMIN/GLOBULIN RATIO 1.5 (1.0-2.7); ANION GAP 15 (5-15); ASPARTATE AMINO TRANSFERASE 17 U/L (5-40); CALCIUM 8.3 mg/dL (8.6-10.2); CARBON DIOXIDE 22 mEQ/L (20-30); CHLORIDE 109 mEQ/L (98-107); CREATININE 0.9 mg/dL (0.7-1.2); HEMOLYSIS 7; POTASSIUM 3.5 mEQ/L (3.4-4.9); SODIUM 146 mEQ/L (135-145)
[2017-01-03 07:42] LABS: MAGNESIUM 1.5 mg/dL (1.7-2.5)
[2017-01-03 08:38] LABS: MEAN CORPUSCULAR HEMOGLOBIN 27.6 PG (27.0-31.0); MEAN CORPUSCULAR HGB CONC 32.8 G/DL (32.0-36.0); MEAN CORPUSCULAR VOLUME 84 FL (80-99); MEAN PLATELET VOLUME 9.8 FL (6.5-10.1); PLATELET COUNT 70 K/UL (150-450); RED BLOOD COUNT 2.77 M/UL (4.70-6.10); RED CELL DISTRIBUTION WIDTH 16.5 % (11.6-14.8); WHITE BLOOD COUNT 4.6 K/UL (4.8-10.8)
[2017-01-03 09:41] LABS: ANISOCYTOSIS 1+; BAND NEUTROPHILS % (MANUAL) 0 % (0-8); BASOPHILS % (MANUAL) 0 % (0-2); EOSINOPHILS % (MANUAL) 1 % (0-3); HYPOCHROMASIA 1+; LYMPHOCYTES % (MANUAL) 15 % (20-45); NEUTROPHILS % (MANUAL) 78 % (45-75); PLATELET ESTIMATE DECREASED; PLATELET MORPHOLOGY NORMAL; POLYCHROMASIA 2+; TOTAL CELLS COUNTED 100
--- NOTE | 2017-01-03 11:11 | GI Progress Note ---
Assessment/Plan Problems: (1) Pacemaker ICD Codes: Z95.0 - Presence of cardiac pacemaker SNOMED: 537323308, 423720472 (2) Anemia associated with acute blood loss (3) Dehydration ICD Codes: E86.0 - Dehydration SNOMED: 27762673 (4) GI bleed ICD Codes: K92.2 - Gastrointestinal hemorrhage, unspecified SNOMED: 05734593 Qualifiers: Qualified Codes: K92.1 - Melena (5) Nausea & vomiting ICD Codes: R11.2 - Nausea with vomiting, unspecified SNOMED: 62596528 Status: unchanged Status Narrative Discussed with Dr. Orellana. Assessment/Plan SUMMARY OF FINDINGS: 1. Poor colonic prep. Incomplete examination secondary to poor prep. 2. Diverticulosis. 3. Internal hemorrhoids. S/P RECOMMENDATIONS: consider repeat colonoscopy if needed monitor H&H, transfuse prn ppi cardiac diet fu labs Subjective Gastrointestinal/Abdominal: Reports: no symptoms Subjective hungry Objective Last 24 Hour Vital Signs Date Time Temp Pulse Resp B/P Pulse Ox O2 Delivery O2 Flow Rate FiO2 01/03/17 09:13 119/72 01/03/17 08:00 98.1 88 18 119/72 100 Room Air 01/03/17 04:00 97.5 77 18 117/69 99 Room Air 01/03/17 04:00 70 01/03/17 00:00 96.8 82 18 123/71 Room Air 01/03/17 00:00 69 01/02/17 20:00 76 01/02/17 20:00 97.3 18 125/76 97 Room Air 8.0 21 01/02/17 16:00 72 01/02/17 15:21 96.3 71 20 128/72 97 Room Air 01/02/17 13:22 98.0 78 20 119/80 98 Room Air 01/02/17 13:09 90 100 01/02/17 13:08 78 20 111/74 98 Room Air 01/02/17 13:08 94 14 100 01/02/17 13:05 79 20 101/75 100 Simple Mask 8.0 01/02/17 13:00 85 20 100/75 100 Simple Mask 8.0 01/02/17 12:55 97.8 91 20 98/70 100 Simple Mask 8.0 01/02/17 12:00 70 01/02/17 11:34 97.3 72 20 122/72 98 Room Air Intake and Output 01/02/17 01/03/17 19:00 07:00 Intake Total 1290 ml 1170 ml Output Total 450 ml 400 ml Balance 840 ml 770 ml Intake Oral 640 ml 100 ml IV Total 350 ml 1070 ml Blood Product 300 ml Output Urine Total 450 ml 400 ml # Bowel Movements 3 1 Laboratory Tests Test 01/03/17 06:00 01/03/17 08:00 Prothrombin Time 10.3 SEC (9.30-11.50) Prothromb Time International Ratio 1.0 (0.9-1.1) Activated Partial Thromboplast Time 21 SEC (23-33) L Sodium Level 146 mEQ/L (135-145) H Potassium Level 3.5 mEQ/L (3.4-4.9) Chloride Level 109 mEQ/L (98-107) H Carbon Dioxide Level 22 mEQ/L (20-30) Anion Gap 15 (5-15) Blood Urea Nitrogen 19 mg/dL (7-23) Creatinine 0.9 mg/dL (0.7-1.2) Estimat Glomerular Filtration Rate mL/min (>60) Glucose Level 112 mg/dL (74-106) H Calcium Level 8.3 mg/dL (8.6-10.2) L Phosphorus Level 3.0 mg/dL (2.5-4.8) Magnesium Level 1.5 mg/dL (1.7-2.5) L Total Bilirubin 0.5 mg/dL (0.0-1.2) Aspartate Amino Transf (AST/SGOT) 17 U/L (5-40) Alanine Aminotransferase (ALT/SGPT) 21 U/L (3-41) Alkaline Phosphatase 48 U/L (40-129) Total Protein 5.0 g/dL (6.6-8.7) L Albumin 3.0 g/dL (3.5-5.2) L Globulin 2.0 g/dL Albumin/Globulin Ratio 1.5 (1.0-2.7) White Blood Count 4.6 K/UL (4.8-10.8) L Red Blood Count 2.77 M/UL (4.70-6.10) L Hemoglobin 7.6 G/DL (14.2-18.0) L Hematocrit 23.3 % (42.0-52.0) L Mean Corpuscular Volume 84 FL (80-99) Mean Corpuscular Hemoglobin 27.6 PG (27.0-31.0) Mean Corpuscular Hemoglobin Concent 32.8 G/DL (32.0-36.0) Red Cell Distribution Width 16.5 % (11.6-14.8) H Platelet Count 70 K/UL (150-450) L Mean Platelet Volume 9.8 FL (6.5-10.1) Neutrophils (%) (Auto) % (45.0-75.0) Lymphocytes (%) (Auto) % (20.0-45.0) Monocytes (%) (Auto) % (1.0-10.0) Eosinophils (%) (Auto) % (0.0-3.0) Basophils (%) (Auto) % (0.0-2.0) Differential Total Cells Counted 100 Neutrophils % (Manual) 78 % (45-75) H Lymphocytes % (Manual) 15 % (20-45) L Monocytes % (Manual) 6 % (1-10) Eosinophils % (Manual) 1 % (0-3) Basophils % (Manual) 0 % (0-2) Band Neutrophils 0 % (0-8) Platelet Estimate Decreased L Platelet Morphology Normal Polychromasia 2+ Hypochromasia 1+ Anisocytosis 1+ Height (Feet): 6 Height (Inches): 2.00 Weight (Pounds): 195 General Appearance: no apparent distress, alert Cardiovascular: normal rate Respiratory/Chest: normal breath sounds, no respiratory distress Abdominal Exam: normal bowel sounds, non tender, soft Extremities: normal range of motion Delmy Cardenas N.P. January 03, 2017 11:10
[2017-01-03] MEDS ORDERED: NS IV ONE (13:00)
[2017-01-03] MEDS ORDERED: MAGNESIUM SULFATE IV ONE (13:00)
--- NOTE | 2017-01-03 13:24 | Pulmonology Progress Note ---
Assessment/Plan Problems: (1) Hemorrhagic shock (2) ATN (acute tubular necrosis) (3) Pacemaker (4) GI bleed Assessment/Plan npo prbc prn, today aganin endoscopy was negative colonoscopy showing diverticulosis d/w dr Kyle check electrolytes renal function improving keep in teli until h/h stable Subjective ROS Limited/Unobtainable: No Constitutional: Reports: no symptoms HEENT: Repors: no symptoms Respiratory: Reports: no symptoms Allergies: Coded Allergies: NO KNOWN ALLERGIES (Unverified Allergy, Unknown, 04/18/15) Objective Last 24 Hour Vital Signs Date Time Temp Pulse Resp B/P Pulse Ox O2 Delivery O2 Flow Rate FiO2 01/03/17 12:00 97.5 79 18 112/67 98 Room Air 01/03/17 12:00 79 01/03/17 09:13 119/72 01/03/17 08:00 98.1 88 18 119/72 100 Room Air 01/03/17 08:00 78 01/03/17 04:00 97.5 77 18 117/69 99 Room Air 01/03/17 04:00 70 01/03/17 00:00 96.8 82 18 123/71 Room Air 01/03/17 00:00 69 01/02/17 20:00 76 01/02/17 20:00 97.3 18 125/76 97 Room Air 8.0 21 01/02/17 16:00 72 01/02/17 15:21 96.3 71 20 128/72 97 Room Air Intake and Output 01/02/17 01/03/17 19:00 07:00 Intake Total 1290 ml 1170 ml Output Total 450 ml 400 ml Balance 840 ml 770 ml Intake Oral 640 ml 100 ml IV Total 350 ml 1070 ml Blood Product 300 ml Output Urine Total 450 ml 400 ml # Bowel Movements 3 1 General Appearance: WD/WN, no acute distress HEENT: normocephalic Respiratory/Chest: chest wall non-tender, lungs clear Cardiovascular: normal peripheral pulses, normal rate Abdomen: normal bowel sounds, soft, non tender Genitourinary: normal external genitalia 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 Laboratory Tests 01/03/17 06:00: Prothrombin Time 10.3, Prothromb Time International Ratio 1.0, Activated Partial Thromboplast Time 21L, Sodium Level 146H, Potassium Level 3.5, Chloride Level 109H, Carbon Dioxide Level 22, Anion Gap 15, Blood Urea Nitrogen 19, Creatinine 0.9, Estimat Glomerular Filtration Rate , Glucose Level 112H, Calcium Level 8.3L, Phosphorus Level 3.0, Magnesium Level 1.5L, Total Bilirubin 0.5, Aspartate Amino Transf (AST/SGOT) 17, Alanine Aminotransferase (ALT/SGPT) 21, Alkaline Phosphatase 48, Total Protein 5.0L, Albumin 3.0L, Globulin 2.0, Albumin/Globulin Ratio 1.5 01/03/17 08:00: White Blood Count 4.6L, Red Blood Count 2.77L, Hemoglobin 7.6L, Hematocrit 23.3L , Mean Corpuscular Volume 84, Mean Corpuscular Hemoglobin 27.6, Mean Corpuscular Hemoglobin Concent 32.8, Red Cell Distribution Width 16.5H, Platelet Count 70L, Mean Platelet Volume 9.8, Neutrophils (%) (Auto) , Lymphocytes (%) (Auto) , Monocytes (%) (Auto) , Eosinophils (%) (Auto) , Basophils (%) (Auto) , Differential Total Cells Counted 100, Neutrophils % ( Manual) 78H, Lymphocytes % (Manual) 15L, Monocytes % (Manual) 6, Eosinophils % ( Manual) 1, Basophils % (Manual) 0, Band Neutrophils 0, Platelet Estimate DecreasedL, Platelet Morphology Normal, Polychromasia 2+, Hypochromasia 1+, Anisocytosis 1+ Current Medications Medications (Trade) Dose Ordered Sig/Kat[place] Route PRN Reason Start Time Stop Time Status Last Admin Dose Admin Acetaminophen (Tylenol) 650 mg Q4H PRN ORAL T>100.5 12/30/16 21:45 01/29/17 21:44 01/03/17 04:01 Al Hydroxide/Mg Hydroxide (Mylanta II) 30 ml Q6H PRN ORAL dyspepsia 12/30/16 21:45 01/29/17 21:44 Amlodipine Besylate (Norvasc) 2.5 mg DAILY ORAL 12/31/16 09:00 01/30/17 08:59 01/03/17 09:13 Dextrose STAT PRN IV Hypoglycemia 12/30/16 21:45 01/29/17 21:44 Dextrose/Sodium Chloride (D5ns) 1,000 ml @ 100 mls/hr Q10H IV 12/30/16 22:00 01/29/17 21:59 01/02/17 19:07 Diphenhydramine HCl (Benadryl) 25 mg Q6H PRN ORAL Itching/Pruritis 12/30/16 21:45 01/29/17 21:44 Magnesium Sulfate/ Sodium Chloride (Magnesium Sulfate/Sodium Chloride) 114 ml @ 114 mls/hr ONCE ONCE IV 01/03/17 13:00 01/03/17 13:59 Morphine Sulfate (Morphine Sulfate) 2 mg Q4H PRN IVP Severe Pain (Pain Scale 7-10) 12/30/16 21:45 01/06/17 21:44 Nitroglycerin (Ntg) 0.4 mg Q5M X 3 DOSES PRN SL Prn Chest Pain 12/30/16 21:45 01/29/17 21:44 Ondansetron HCl (Zofran) 4 mg Q6H PRN IVP Nausea & Vomiting 12/30/16 21:45 01/29/17 21:44 Pantoprazole 40 mg 40 mg DAILY IVP 01/03/17 13:00 02/02/17 12:59 Polyethylene Glycol (Miralax) 17 gm HSPRN PRN ORAL Constipation 12/30/16 21:45 01/29/17 21:44 Promethazine HCl/ Codeine (Phenergan with Codeine) 5 ml Q4H PRN ORAL For Cough 12/31/16 15:30 01/30/17 15:29 Temazepam (Restoril) 15 mg HSPRN PRN ORAL Insomnia 12/30/16 21:45 01/06/17 21:44 12/31/16 01:26 JUAN DANIEL SMITH January 03, 2017 13:24
[2017-01-03] MEDS: Pantoprazole Inj IVP SCH (14:23)
[2017-01-04] VITALS: BP 105/65
[2017-01-04] MEDS: D5NS 1,000 ML IV SCH ×4 (02:53→23:37)
[2017-01-04 04:07] VITALS: BP 124/71
[2017-01-04 07:45] VITALS: BP 117/66
[2017-01-04 08:11] LABS: MEAN CORPUSCULAR HGB CONC 34.2 G/DL (32.0-36.0); MEAN CORPUSCULAR VOLUME 88 FL (80-99); MEAN PLATELET VOLUME 9.2 FL (6.5-10.1); PLATELET COUNT 82 K/UL (150-450); RED BLOOD COUNT 2.96 M/UL (4.70-6.10); RED CELL DISTRIBUTION WIDTH 16.4 % (11.6-14.8); WHITE BLOOD COUNT 3.9 K/UL (4.8-10.8)
[2017-01-04 08:14] LABS: ANION GAP 13 (5-15); CALCIUM 8.2 mg/dL (8.6-10.2); CARBON DIOXIDE 23 mEQ/L (20-30); CHLORIDE 109 mEQ/L (98-107); CREATININE 0.9 mg/dL (0.7-1.2); HEMOLYSIS 2; MAGNESIUM 1.7 mg/dL (1.7-2.5); POTASSIUM 3.3 mEQ/L (3.4-4.9); SODIUM 145 mEQ/L (135-145)
[2017-01-04] MEDS: Pantoprazole Inj IVP SCH (08:52)
[2017-01-04 10:14] LABS: ANISOCYTOSIS 1+; BAND NEUTROPHILS % (MANUAL) 0 % (0-8); BASOPHILS % (MANUAL) 1 % (0-2); EOSINOPHILS % (MANUAL) 3 % (0-3); HYPOCHROMASIA 2+; LYMPHOCYTES % (MANUAL) 25 % (20-45); NEUTROPHILS % (MANUAL) 58 % (45-75); PLATELET ESTIMATE DECREASED; TOTAL CELLS COUNTED 100
[2017-01-04 10:15] LABS: PLATELET MORPHOLOGY NORMAL; SPHEROCYTES 1+
[2017-01-04 11:33] VITALS: BP 115/78
--- NOTE | 2017-01-04 13:16 | Pulmonology Progress Note ---
Assessment/Plan Problems: (1) Hemorrhagic shock (2) ATN (acute tubular necrosis) (3) Pacemaker (4) GI bleed Assessment/Plan npo prbc prn, h/h stable for 24 hours endoscopy was negative colonoscopy showing diverticulosis d/w dr Kyle, repeat colonoscopy pending check electrolytes renal function improving keep in teli until h/h stable Subjective ROS Limited/Unobtainable: No Interval Events: comfortable Allergies: Coded Allergies: NO KNOWN ALLERGIES (Unverified Allergy, Unknown, 04/18/15) Objective Last 24 Hour Vital Signs Date Time Temp Pulse Resp B/P Pulse Ox O2 Delivery O2 Flow Rate FiO2 01/04/17 11:33 98.3 81 20 115/78 95 Room Air 01/04/17 08:52 96 117/66 01/04/17 07:45 98.1 96 20 117/66 96 Room Air 01/04/17 07:29 98 01/04/17 04:07 98.1 79 20 124/71 98 Room Air 01/04/17 04:00 67 01/04/17 00:00 97.4 74 20 105/65 98 Room Air 01/04/17 00:00 81 01/03/17 20:30 97.9 77 20 114/63 95 Room Air 01/03/17 20:25 97.7 75 19 108/65 98 Room Air 01/03/17 20:10 97.7 74 19 115/65 98 Room Air 01/03/17 20:00 81 01/03/17 16:00 97.7 81 19 115/68 98 Room Air 01/03/17 16:00 81 Intake and Output 01/03/17 01/04/17 19:00 07:00 Intake Total 800 ml 1170 ml Output Total 900 ml Balance 800 ml 270 ml Intake Oral 120 ml IV Total 800 ml 800 ml Blood Product 250 ml Output Urine Total 900 ml # Voids 3 General Appearance: WD/WN HEENT: normocephalic, atraumatic Respiratory/Chest: chest wall non-tender, lungs clear Cardiovascular: normal peripheral pulses, normal rate Abdomen: normal bowel sounds, soft, non tender Genitourinary: normal external genitalia Extremities: no cyanosis Skin: no rash Laboratory Tests 01/04/17 07:25: White Blood Count 3.9L, Red Blood Count 2.96L, Hemoglobin 8.9L, Hematocrit 26.0L , Mean Corpuscular Volume 88, Mean Corpuscular Hemoglobin 30.0, Mean Corpuscular Hemoglobin Concent 34.2, Red Cell Distribution Width 16.4H, Platelet Count 82L, Mean Platelet Volume 9.2, Neutrophils (%) (Auto) , Lymphocytes (%) (Auto) , Monocytes (%) (Auto) , Eosinophils (%) (Auto) , Basophils (%) (Auto) , Differential Total Cells Counted 100, Neutrophils % ( Manual) 58, Lymphocytes % (Manual) 25, Monocytes % (Manual) 13H, Eosinophils % ( Manual) 3, Basophils % (Manual) 1, Band Neutrophils 0, Platelet Estimate DecreasedL, Platelet Morphology Normal, Hypochromasia 2+, Anisocytosis 1+, Spherocytes 1+, Sodium Level 145, Potassium Level 3.3L, Chloride Level 109H, Carbon Dioxide Level 23, Anion Gap 13, Blood Urea Nitrogen 8, Creatinine 0.9, Estimat Glomerular Filtration Rate , Glucose Level 122H, Calcium Level 8.2L, Magnesium Level 1.7 Current Medications Medications (Trade) Dose Ordered Sig/Katya Route PRN Reason Start Time Stop Time Status Last Admin Dose Admin Acetaminophen (Tylenol) 650 mg Q4H PRN ORAL Mild Pain/Temp > 100.5 01/03/17 20:45 02/02/17 20:44 01/04/17 08:50 Al Hydroxide/Mg Hydroxide (Mylanta II) 30 ml Q6H PRN ORAL dyspepsia 12/30/16 21:45 01/29/17 21:44 Amlodipine Besylate (Norvasc) 2.5 mg DAILY ORAL 12/31/16 09:00 01/30/17 08:59 01/04/17 08:52 Bisacodyl (Dulcolax) 10 mg ONCE ONCE ORAL 01/04/17 16:00 01/04/17 16:01 Dextrose STAT PRN IV Hypoglycemia 12/30/16 21:45 01/29/17 21:44 Dextrose/Sodium Chloride (D5ns) 1,000 ml @ 100 mls/hr Q10H IV 12/30/16 22:00 01/29/17 21:59 01/04/17 02:53 Diphenhydramine HCl (Benadryl) 25 mg Q6H PRN ORAL Itching/Pruritis 12/30/16 21:45 01/29/17 21:44 Magnesium Citrate (Citrate Of Magnesia) 300 ml ONCE ONCE ORAL 01/04/17 16:00 01/04/17 16:01 Morphine Sulfate (Morphine Sulfate) 2 mg Q4H PRN IVP Severe Pain (Pain Scale 7-10) 12/30/16 21:45 01/06/17 21:44 Nitroglycerin (Ntg) 0.4 mg Q5M X 3 DOSES PRN SL Prn Chest Pain 12/30/16 21:45 01/29/17 21:44 Ondansetron HCl (Zofran) 4 mg Q6H PRN IVP Nausea & Vomiting 12/30/16 21:45 01/29/17 21:44 Pantoprazole (Protonix) 40 mg DAILY IVP 01/03/17 13:00 02/02/17 12:59 01/04/17 08:52 Polyethylene Glycol (Miralax) 17 gm HSPRN PRN ORAL Constipation 12/30/16 21:45 01/29/17 21:44 Polyethylene Glycol (Miralax) 238 gm ONCE ONCE ORAL 01/04/17 16:00 01/04/17 16:01 Promethazine HCl/ Codeine (Phenergan with Codeine) 5 ml Q4H PRN ORAL For Cough 12/31/16 15:30 01/30/17 15:29 Sodium Phosphate (Fleet's Sodium Phosl Enema) 133 ml ONCE ONCE RECTAL 01/04/17 23:00 01/04/17 23:01 Temazepam (Restoril) 15 mg HSPRN PRN ORAL Insomnia 12/30/16 21:45 01/06/17 21:44 12/31/16 01:26 JUAN DANIEL SMITH January 04, 2017 13:16
[2017-01-04 15:28] VITALS: BP 144/79
[2017-01-04] MEDS ORDERED: Polyethylene Glycol 238gm bottle ORAL ONE (16:00)
[2017-01-04] MEDS ORDERED: Magnesium Citrate Liq Btl ORAL ONE (16:00)
[2017-01-04] MEDS ORDERED: Bisacodyl EC 5mg tab ORAL ONE (16:00)
[2017-01-04] MEDS ORDERED: NS 275ml ONE (16:32)
[2017-01-04] MEDS ORDERED: D5NS 1000ml IV ONE ×2 (16:32→18:08)
[2017-01-04] MEDS ORDERED: Tubing IV Blood Pump IV ONE (16:32)
[2017-01-04 20:34] VITALS: BP 134/84
[2017-01-04] MEDS ORDERED: Fleet's Enema 133ml RECTAL ONE (23:00)
[2017-01-05] VITALS (8 sets, daily range): BP systolic 110–130; BP diastolic 63–86
[2017-01-05 08:09] LABS: EOSINOPHILS % (AUTO) 1.7 % (0.0-3.0); LYMPHOCYTES % (AUTO) 23.2 % (20.0-45.0); MEAN CORPUSCULAR HEMOGLOBIN 27.6 PG (27.0-31.0); MEAN CORPUSCULAR HGB CONC 31.8 G/DL (32.0-36.0); MEAN CORPUSCULAR VOLUME 87 FL (80-99); MEAN PLATELET VOLUME 9.5 FL (6.5-10.1); MONOCYTES % (AUTO) 13.9 % (1.0-10.0); NEUTROPHILS % (AUTO) 60.2 % (45.0-75.0); PLATELET COUNT 101 K/UL (150-450); RED BLOOD COUNT 3.22 M/UL (4.70-6.10); RED CELL DISTRIBUTION WIDTH 18.4 % (11.6-14.8); WHITE BLOOD COUNT 3.6 K/UL (4.8-10.8)
[2017-01-05 08:22] LABS: ANION GAP 12 (5-15); CALCIUM 8.7 mg/dL (8.6-10.2); CARBON DIOXIDE 26 mEQ/L (20-30); CHLORIDE 109 mEQ/L (98-107); CREATININE 0.9 mg/dL (0.7-1.2); HEMOLYSIS 5; POTASSIUM 3.9 mEQ/L (3.4-4.9); SODIUM 147 mEQ/L (135-145)
[2017-01-05 08:27] LABS: PROTHROMBIN TIME 10.3 SEC (9.30-11.50)
[2017-01-05] MEDS: Pantoprazole Inj IVP SCH (09:25)
[2017-01-05] MEDS: D5NS 1,000 ML IV SCH (09:26)
[2017-01-05] MEDS ORDERED: Lidocaine 1% MPF 10mg/ml 5ml ONE (09:45)
[2017-01-05] MEDS ORDERED: Propofol 10mg/ml 20ml IV ONE (09:45)
[2017-01-05] MEDS ORDERED: NS 550ML IV ONE (09:55)
--- NOTE | 2017-01-05 09:57 | Pre-Procedure Note/Attestation ---
Pre-Procedure Note/Attestation Complete Prior to Procedure Planned Procedure: not applicable Procedure Narrative: colonoscopy Indications for Procedure Pre-Operative Diagnosis: gib Attestation I attest that I discussed the nature of the procedure; its benefits; risks and complications; and alternatives (and the risks and benefits of such alternatives ), prior to the procedure, with the patient (or the patient's legal termite control representative). I attest that, if there was a reasonable possibility of needing a blood transfusion, the patient (or the patient's legal termite control representative) was given the [facility] standardized written summary, pursuant to the [place] Blood Safety Act ([place] Health and Safety Code # 1645, as amended). I attest that I re-evaluated the patient just prior to the surgery and that there has been no change in the patient's H&P, except as documented below: AXEL SOLORIO January 05, 2017 09:57
--- NOTE | 2017-01-05 10:28 | Anethesia Preoperative Eval ---
Anesthesia Pre-op PMH/ROS General Date of Evaluation: January 05, 2017 Time of Evaluation: 10:19 Anesthesiologist: jak ASA Score: ASA 3 Mallampati Score Class I : Soft palate, uvula, fauces, pillars visible Class II: Soft palate, uvula, fauces visible Class III: Soft palate, base of uvula visible Class IV: Only hard plate visible Mallampati Classification: Class III Surgeon: ana maria Diagnosis: anemia/gi bleed Surgical Procedure: colonoscopy Anesthesia History: none Family History: no anesthesia problems Allergies: Coded Allergies: NO KNOWN ALLERGIES (Unverified Allergy, Unknown, 04/18/15) Medications: see eMAR Past Medical History Cardiovascular: Reports: CAD, HTN, other - chf/pacemaker Pulmonary: Reports: COPD Gastrointestinal/Genitourinary: Reports: GERD, other - gi bleed Neurologic/Psychiatric: Denies: CVA, TIA, dementia, depression/anxiety, other Endocrine: Denies: DM, hypothyroidism, other, steroids HEENT: Denies: [place] (L), [place] (R), cataract (L), cataract (R), glaucoma, other Hematology/Immune: Reports: anemia PSxH Narrative: egd/pacemaker Anesthesia Pre-op Phys. Exam Physician Exam Last Vital Signs Date Time Temp Pulse Resp B/P Pulse Ox O2 Delivery O2 Flow Rate FiO2 01/05/17 09:34 84 130/80 01/05/17 08:00 97.7 21 97 Room Air 01/02/17 20:00 8.0 21 Constitutional: NAD Neurologic: CN 2-12 intact Cardiovascular: RRR Respiratory: CTA Gastrointestinal: S/NT/ND Airway Exam Mallampati Classification 3 Mallampati Score: Class III MO: full ROM: full Dentures: no lower, no upper Anesthesia Pre-op A/P Labs Hematology Test 01/05/17 06:23 White Blood Count 3.6 K/UL (4.8-10.8) L Red Blood Count 3.22 M/UL (4.70-6.10) L Hemoglobin 8.9 G/DL (14.2-18.0) L Hematocrit 28.0 % (42.0-52.0) L Mean Corpuscular Volume 87 FL (80-99) Mean Corpuscular Hemoglobin 27.6 PG (27.0-31.0) Mean Corpuscular Hemoglobin Concent 31.8 G/DL (32.0-36.0) L Red Cell Distribution Width 18.4 % (11.6-14.8) H Platelet Count 101 K/UL (150-450) L Mean Platelet Volume 9.5 FL (6.5-10.1) Neutrophils (%) (Auto) 60.2 % (45.0-75.0) Lymphocytes (%) (Auto) 23.2 % (20.0-45.0) Monocytes (%) (Auto) 13.9 % (1.0-10.0) H Eosinophils (%) (Auto) 1.7 % (0.0-3.0) Basophils (%) (Auto) 1.0 % (0.0-2.0) Coagulation Test 01/05/17 06:23 Prothrombin Time 10.3 SEC (9.30-11.50) Prothromb Time International Ratio 1.0 (0.9-1.1) Activated Partial Thromboplast Time 20 SEC (23-33) L Chemistry Test 01/05/17 06:23 Sodium Level 147 mEQ/L (135-145) H Potassium Level 3.9 mEQ/L (3.4-4.9) Chloride Level 109 mEQ/L (98-107) H Carbon Dioxide Level 26 mEQ/L (20-30) Anion Gap 12 (5-15) Blood Urea Nitrogen 5 mg/dL (7-23) L Creatinine 0.9 mg/dL (0.7-1.2) Estimat Glomerular Filtration Rate mL/min (>60) Glucose Level 91 mg/dL (74-106) Calcium Level 8.7 mg/dL (8.6-10.2) Studies Pre-op Studies: EKG - sr Risk Assessment & Plan Plan: redo colonoscopy/ 1st colon - incomplete prep Status Change Before Surgery: No Pre-Antibiotics Drug: none PING JON CRNA January 05, 2017 10:28
--- NOTE | 2017-01-05 10:35 | Endoscopy Procedure Note ---
Endoscopy Procedure Note Indication for Procedure: anemia, gib Procedures Performed: colonoscopy Operative Findings/Diagnosis: diverticulosis, colon polyps Specimen: yes Pt Tolerated Procedure Well: Yes Estimated Blood Loss: none Anesthesiologist: roque Anesthesia: MAC 50 yrs or older w/o bx or poly: Not Applicable 10yrs. F/U not recommended: Not Applicable AXEL SOLORIO January 05, 2017 10:35
--- NOTE | 2017-01-05 11:21 | 48 Hour Post Anesthesia Eval ---
Post Anesthesia Evaluation Procedure: Colonoscopy Date of Evaluation: January 05, 2017 Time of Evaluation: 11:21 Blood Pressure Systolic: 125 0: 60 Pulse Rate: 74 Respiratory Rate: 14 O2 Sat by Pulse Oximetry: 98 Airway: patent Nausea: No Vomiting: No Hydration Status: adequate Mental Status/LOC: patient returned to baseline Post-Anesthesia Complications: none Follow-up care needed: N/A PING JON CRNA January 05, 2017 11:21
--- NOTE | 2017-01-05 11:27 | Immediate Post-Op Evaluation ---
Immediate Post-Op Evalulation Immediate Post-Op Evalulation Procedure: Colonoscopy Date of Evaluation: January 05, 2017 Time of Evaluation: 10:40 Blood Pressure Systolic: 114 Blood Pressure Diastolic: 78 Pulse Rate: 55 Respiratory Rate: 14 O2 Sat by Pulse Oximetry: 99 Temperature (Fahrenheit): 97.5 Nausea: No Vomiting: No Complications none Patient Status: awake, reacts, patent Hydration Status: adequate Drug: none PING JON CRNA January 05, 2017 11:27
--- NOTE | 2017-01-05 13:38 | Pulmonology Progress Note ---
Assessment/Plan Problems: (1) Hemorrhagic shock (2) ATN (acute tubular necrosis) (3) Pacemaker (4) GI bleed Assessment/Plan toleratign diet prbc prn, h/h stable for 48 hours endoscopy was negative colonoscopy showing diverticulosis d/w dr Kyle, pt can go home Subjective ROS Limited/Unobtainable: No Constitutional: Reports: no symptoms HEENT: Repors: no symptoms Respiratory: Reports: no symptoms Allergies: Coded Allergies: NO KNOWN ALLERGIES (Unverified Allergy, Unknown, 04/18/15) Objective Last 24 Hour Vital Signs Date Time Temp Pulse Resp B/P Pulse Ox O2 Delivery O2 Flow Rate FiO2 01/05/17 11:40 96.1 88 20 129/86 95 Room Air 01/05/17 11:27 55 14 99 01/05/17 11:21 74 14 98 01/05/17 10:54 97.4 69 22 122/85 97 Room Air 01/05/17 10:45 80 20 110/83 97 Room Air 01/05/17 10:40 80 23 110/63 97 Room Air 01/05/17 10:35 97.5 83 26 114/78 95 Room Air 01/05/17 09:34 84 130/80 01/05/17 08:00 97.7 84 21 130/80 97 Room Air 01/05/17 04:00 65 01/05/17 03:55 98.8 81 19 113/75 94 Room Air 01/05/17 00:10 98.5 84 20 116/76 94 Room Air 01/05/17 00:00 79 01/04/17 20:34 98.4 72 19 134/84 100 Room Air 01/04/17 20:00 70 01/04/17 15:28 97.7 64 20 144/79 98 Room Air 01/04/17 15:03 65 Intake and Output 01/04/17 01/05/17 19:00 07:00 Intake Total 2160 ml 1138 ml Output Total 1050 ml 700 ml Balance 1110 ml 438 ml Intake Oral 1260 ml IV Total 900 ml 1138 ml Output Urine Total 1050 ml 700 ml # Voids 3 # Bowel Movements 4 General Appearance: WD/WN HEENT: normocephalic, atraumatic Respiratory/Chest: chest wall non-tender, lungs clear Cardiovascular: normal peripheral pulses, normal rate Abdomen: normal bowel sounds, soft, non tender Extremities: no cyanosis, no clubbing Skin: no rash Laboratory Tests 01/05/17 06:23: White Blood Count 3.6L, Red Blood Count 3.22L, Hemoglobin 8.9L, Hematocrit 28.0L , Mean Corpuscular Volume 87, Mean Corpuscular Hemoglobin 27.6, Mean Corpuscular Hemoglobin Concent 31.8L, Red Cell Distribution Width 18.4H, Platelet Count 101L, Mean Platelet Volume 9.5, Neutrophils (%) (Auto) 60.2, Lymphocytes (%) (Auto) 23.2, Monocytes (%) (Auto) 13.9H, Eosinophils (%) (Auto) 1.7, Basophils (%) (Auto) 1.0, Prothrombin Time 10.3, Prothromb Time International Ratio 1.0, Activated Partial Thromboplast Time 20L, Sodium Level 147H, Potassium Level 3.9, Chloride Level 109H, Carbon Dioxide Level 26, Anion Gap 12, Blood Urea Nitrogen 5L, Creatinine 0.9, Estimat Glomerular Filtration Rate , Glucose Level 91, Calcium Level 8.7 Current Medications Medications (Trade) Dose Ordered Sig/Katya Route PRN Reason Start Time Stop Time Status Last Admin Dose Admin Acetaminophen (Tylenol) 650 mg Q4H PRN ORAL Mild Pain/Temp > 100.5 01/03/17 20:45 02/02/17 20:44 01/04/17 08:50 Al Hydroxide/Mg Hydroxide (Mylanta II) 30 ml Q6H PRN ORAL dyspepsia 12/30/16 21:45 01/29/17 21:44 Amlodipine Besylate (Norvasc) 2.5 mg DAILY ORAL 12/31/16 09:00 01/30/17 08:59 01/05/17 09:34 Dextrose STAT PRN IV Hypoglycemia 12/30/16 21:45 01/29/17 21:44 Dextrose/Sodium Chloride (D5ns) 1,000 ml @ 100 mls/hr Q10H IV 12/30/16 22:00 01/29/17 21:59 01/05/17 09:26 Diphenhydramine HCl (Benadryl) 25 mg Q6H PRN ORAL Itching/Pruritis 12/30/16 21:45 01/29/17 21:44 Morphine Sulfate (Morphine Sulfate) 2 mg Q4H PRN IVP Severe Pain (Pain Scale 7-10) 12/30/16 21:45 01/06/17 21:44 Nitroglycerin (Ntg) 0.4 mg Q5M X 3 DOSES PRN SL Prn Chest Pain 12/30/16 21:45 01/29/17 21:44 Ondansetron HCl (Zofran) 4 mg Q6H PRN IVP Nausea & Vomiting 12/30/16 21:45 01/29/17 21:44 Pantoprazole (Protonix) 40 mg DAILY IVP 01/03/17 13:00 02/02/17 12:59 01/05/17 09:25 Polyethylene Glycol (Miralax) 17 gm HSPRN PRN ORAL Constipation 12/30/16 21:45 01/29/17 21:44 Promethazine HCl/ Codeine (Phenergan with Codeine) 5 ml Q4H PRN ORAL For Cough 12/31/16 15:30 01/30/17 15:29 Temazepam (Restoril) 15 mg HSPRN PRN ORAL Insomnia 12/30/16 21:45 01/06/17 21:44 12/31/16 01:26 JUAN DANIEL SMITH January 05, 2017 13:38
[2017-01-05] MEDS ORDERED: D5NS 1000ml IV ONE (15:25)
--- NOTE | 2017-01-05 19:58 | Procedure Note ---
DATE OF PROCEDURE: 01/05/2017 SURGEON: Ej Orellana M.D. PROCEDURE: Colonoscopy with biopsy. ANESTHESIA: Per SIX SIGMA BLACK TRAINER, Arin. INSTRUMENT: Olympus adult flexible colonoscope. INDICATION: GI bleeding. REASON FOR PROCEDURE: The procedure, risks, benefits, and possible consequences, including hemorrhage, aspiration, perforation and infection, and alternative treatments, were explained to the patient/legal guardian by Dr. Ej Orellana and the patient/legal guardian understood and accepted these risks. PROCEDURE: After informed consent was obtained and the patient was adequately sedated, first rectal exam was performed, which is positive for internal hemorrhoids. Then, the scope was advanced from the rectum into the cecum, documented by appendiceal orifice, ileocecal valve, and right upper quadrant palpation. Quality of prep was good. The patient had a difficult colonoscopy given severe sigmoid diverticulosis. We were able to manipulate the pediatric colonoscope through. The patient had no active bleeding at this time. He had a significant diverticulosis in the left colon and some scattered diverticulosis evident in the rest of the colon. The patient had multiple polyps in the rectosigmoid area, most probably hypoblastic polyp, more than about maybe 10 of them, three or four of them were biopsied on this colonoscopic examination. Retroflexion of rectum showed some internal hemorrhoids. SUMMARY FINDINGS: 1. Multiple colonic polyps, see above for detail. 2. Diverticulosis. 3. Internal hemorrhoids. RECOMMENDATIONS: There is no active bleeding at this time. Likely there is anemia with gastrointestinal bleeding. The patient already had an endoscopy before negative. So, recommend diet, monitor hemoglobin and hematocrit and transfuse as needed. If the patient continues to have drop in hemoglobin and hematocrit, needs Hematology workup and may be CT of the abdomen and pelvis to rule out retroperitoneal bleed. I want to thank, Dr. Mathew, for this kind referral. Ej Orellana M.D. DR: RITA JOB#: [id number] CC: Kaiser Mathew M.D.
--- NOTE | 2017-01-08 08:21 | Discharge Summary ---
Discharge Summary Hospital Course Date of Admission Dec 30, 2016 at 21:06 Date of Discharge January 05, 2017 at 16:20 Admitting Diagnosis GI bleed HPI Stanton Lopez is a 81 year old male who was admitted on Dec 30, 2016 at 21: 06 for Gi Bleed Hospital Course dc summary #[id number] Discharge Medications Continued Medications: Amlodipine Besylate (Norvasc) 2.5 Mg Tab 2.5 MG ORAL DAILY, TAB Omeprazole (Omeprazole) 20 Mg Tablet.dr 20 MG ORAL BID, #30 TAB 0 Refills Vitamin B Complex (B Complex) 1 Each Tablet 1 TAB ORAL DAILY, #30 TAB 0 Refills Discharge Condition Upon Discharge: stable Discharge Disposition Patient was discharged to Home with Home Health() Discharge Diagnoses: Discharge Instructions Discharge Instructions Special Instructions I have been assigned to complete a D/C Summary on this account. I was not involved in the patient management Amada Barcenas NP (Vanchtein) January 08, 2017 08:21
--- NOTE | 2017-01-09 02:49 | Discharge Summary 2 SIG ---
DATE OF ADMISSION: 12/30/2016 DATE OF DISCHARGE: 01/05/2017 REASON FOR ADMISSION: The patient is an 81-year-old male, presented to the emergency room with black tarry diarrhea for several days. He was also complaining of weakness and cough. He denied fever and chills. The patient on blood thinners, but did not remember the name. He said when he coughs, he passes stool. Cough is nonproductive. No hemoptysis. No wheezing. He had some dyspnea on exertion. He denied any chest pain. Denied any abdominal pain. No nausea. No vomiting. No hematemesis. No dizziness. No anxiety. In the past, the patient was hospitalized for six days with GI bleeding. He was on Eliquis at that time, which was stopped. He is taking iron currently. Workup in the emergency room revealed hemoglobin 10.4 and hematocrit 33.6. The next morning, hemoglobin 8.0, hematocrit 25.5 BUN 53, and creatinine 1.9. Troponin negative. Chest x-ray negative with evidence of pacemaker and COPD. Troponin negative. On telemetry was sinus rhythm. No ischemic changes. The patient was given IV fluids, bronchodilators, and Protonix in the emergency room and the patient was admitted for further management. ADMITTING DIAGNOSES: 1. Gastrointestinal bleeding. 2. Bronchospasm. 3. Acute renal failure. 4. Anemia. HOSPITAL COURSE: The patient admitted to telemetry. The patient started on IV fluids. GI consult was requested. Hemoglobin and hematocrit were closely monitored sharp decrease in hemoglobin on 01/01/2017 with hemoglobin of 5.3 and hematocrit 17.6. Peripheral blood smear revealed normocytic normal severe anemia with mild leukopenia, but no blasts and thrombocytopenia, but no platelet aggregation. The patient undergone transfusion of packed red blood cells total for this admission five units. GI scheduled the patient on 01/01/2017 for upper endoscopy, which revealed shallow duodenal ulcer, unlikely source of bleeding as per GI and gastritis as well as esophageal hernia. Status post biopsy of gastritis revealed reactive gastropathy. No H. pylori organism identified. No intestinal metaplasia or dysplasia. The patient subsequently next day undergone colonoscopy, however, was poor preparation but revealed diverticulosis and internal hemorrhoids. The patient undergone repeated colonoscopy on , which revealed multiple colonic polyps, diverticulosis, and internal hemorrhoids. The patient had severe sigmoid diverticulosis status post biopsy of the colon. Hemoglobin and hematocrit remained stable for 48 hours. The patient tolerated diet. The patient was on PPI. GI cleared for discharge. Hold all anticoagulation per G. Closely monitor hemoglobin and hematocrit as outpatient. If continued to have a drop, he will need Hematology workup and possibly CT of the abdomen and pelvis to rule out retroperitoneal bleeding. Blood pressure initially hypotensive with the IV fluid improved likely secondary to dehydration and anemia. Upon discharge, blood pressure was managed with low dose of calcium channel fiona and was stable. Supplemental oxygen and pulmonary toilet provided as needed. Antitussive provided as needed. Chest x-ray, no acute cardiopulmonary process. Renal ultrasound was negative. The patient was on the IV fluids. Renal parameters and electrolytes were closely monitored. Nephrotoxics were avoided. Upon discharge, BUN 5 and creatinine is 0.9, and while and upon admission BUN 53 and creatinine 1.9. The patient was stable for discharge. Follow up with the primary medical doctor. DISCHARGE DIAGNOSES: 1. Anemia secondary to gastrointestinal bleeding. 2. Hemorrhagic shock. 3. Acute renal failure/acute tubular necrosis likely secondary to dehydration and hypotension, resolved. 4. Bronchitis. 5. History of hypertension. 6. Pacemaker. 7. Severe sigmoid diverticulosis. 8. Multiply colon polyp status post biopsy. 9. Shallow duodenal ulcer. 10. Gastritis. 11. History of asthma. DISCHARGE MEDICATIONS: See medication reconciliation list. Of note, venous duplex was negative. Renal ultrasound was negative. DISCHARGE INSTRUCTIONS: The patient discharged home. Follow up with the primary medical doctor. The patient was instructed to go to the nearest emergency room. The patient was reminded to follow up closely next week with the primary medical doctor to check hemoglobin and hematocrit. Kaiser Mathew M.D. I have been assigned to dictate discharge summary on this account and I was not involved in the patient's management. Amada Romerokaleida healthAngela NNataliaPNatalia DR: Miasel JOB#: [id number] CC:
== END 2017-01-05 16:20 | disposition home health service (06) | DRG 377 ==
LOC: EDBD 19:36 → EMR 20:31 → 2W 21:06 → EDBEDREQ 22:15 → 2E 12-31 07:17
DX: K92.2 Gastrointestinal hemorrhage, unspecified (principal); N17.0 Acute kidney failure with tubular necrosis; R57.8 Other shock; D62 Acute posthemorrhagic anemia; J45.909 Unspecified asthma, uncomplicated; Z95.0 Presence of cardiac pacemaker; I10 Essential (primary) hypertension; K44.9 Diaphragmatic hernia without obstruction or gangrene; K29.70 Gastritis, unspecified, without bleeding; K26.9 Duodenal ulcer, unspecified as acute or chronic, without hemorrhage or perforation; K64.8 Other hemorrhoids; K57.30 Diverticulosis of large intestine without perforation or abscess without bleeding
CPT/HCPCS: 36415; 71010; 74000; 76775; 80048; 80053; 81003; 82150; 82270; 82378; 82436; 82533; 82550; 82746; 83540; 83550; 83615; 83690; 83735; 83930; 83935; 84100; 84133; 84300; 84481; 84484; 85007; 85025; 85044; 85060; 85610; 85651; 85730; 86850; 86900; 86901; 86920; 89050; 93005; 93970; 94003; 94150; 94640; 94664; J2405; J8499

== ENCOUNTER 2019-06-07 18:25 | Inpatient (IN) | payer MEDICARE, OTHER ==
[~2019-06-07] VITALS: Ht 188 cm; Wt 90.3 kg
[~2019-06-07 18:25] MED LIST changes: -Albuterol ud Inhalation HHN ONE; -Ipratropium 0.02% Inh Soln 2.5ml UD HHN ONE; -Pantoprazole Inj IV ONE
[2019-06-07 18:42] VITALS: BP 115/79
--- NOTE | 2019-06-07 18:42 | NUR ---
ED Nurse Note: Pt came in due to left shoulder pain S/P Fall around 0830 this morning. Per pt, he was walking with his cane on a 2 [address] stair going to his porch, then he slipped and fell witnessed by his home health billing specialist. Denies head injury but noted left upper arm bruising and swelling. AAO x4 and ambulates with assistance.
[2019-06-07] MEDS ORDERED: Morphine Sulfate 2mg/ml Inj(IV/IM USE ONLY) IVP ONE (19:00)
--- NOTE | 2019-06-07 19:19 | Emergency Room Report ---
History of Present Illness General Chief Complaint: Multiple Trauma/Fall Source: Patient Present Illness HPI Patient presents after a non-syncopal fall at 830 this morning. He missed a step of his porch trying to hurry to the bathroom. He uses a cane and sometimes his left leg stiffens up on him. He has been told that this is due to arthritis. He fell forward and hit his left shoulder. When he tries to move it its extremely painful, sharp and aching radiating to his chest. When he allows it to rest there is no pain according to him. He denies any numbness in the hand and is able to move his fingers. There is no elbow tenderness. He does have some left sided chest pain since the fall which is more related to movement of his left shoulder. Part of the problem is that he took a stool softener and was wearing a diaper and was concerned about an accident. History of atrial fibrillation post pacemaker placement The patient does have edema but is uncertain what medications he takes for this. He claims this is not worsened at this time. He denies dyspnea or chest pain. There is no orthopnea. The patient takes Pradaxa. He walks with a cane. He says that he was unable to use a walker, No dysuria, head pain or trauma, change in vision, nausea, vomiting, diarrhea, melena, hematochezia, abdominal pain. He denies drinking alcohol but his family states that he does drink alcohol. Allergies: Coded Allergies: NO KNOWN ALLERGIES (Unverified Allergy, Unknown, 04/18/15) Patient History Past Medical History: see triage record Past Surgical History: pacemaker Social History: Reports: alcohol use - This was denied by patient; Denies: smoking - Former, drug use Social History Narrative Lives with many family members. Reviewed Nursing Documentation: PMH: Agreed; PSxH: Agreed Nursing Documentation-PMH Hx Cardiac Problems: Yes Hx Hypertension: Yes Hx Pacemaker: Yes Hx Asthma: Yes Hx Cancer: No Hx Gastrointestinal Problems: Yes Hx Neurological Problems: No Review of Systems All Other Systems: negative except mentioned in HPI Physical Exam Vital Signs Date Time Temp Pulse Resp B/P (MAP) Pulse Ox O2 Delivery O2 Flow Rate FiO2 06/07/19 18:32 97.5 91 18 102/68 (79) 94 Room Air Sp02 EP Interpretation: reviewed, normal General Appearance: well appearing, no apparent distress, GCS 15 Head: normocephalic, atraumatic Eyes: bilateral eye normal inspection, bilateral eye other ENT: moist mucus membranes Neck: full range of motion, supple, no bony tend Respiratory: lungs clear, normal breath sounds, other - Pacemaker left Cardiovascular #1: irregularly irregular, edema - 2-3+ pitting Cardiovascular #2: 2+ radial (R), 2+ radial (L) - Good capillary refill Gastrointestinal: normal inspection, normal bowel sounds, non tender, no mass, non-distended Genitourinary: no CVA tenderness Musculoskeletal: back normal, normal range of motion, no calf tenderness, decreased range of motion - Left shoulder, Keaton's Sign negative, swelling - Left shoulder, tender - Passive range of motion left shoulder with swelling Neurologic: alert, motor strength/tone normal, DTRs symmetric, sensory intact, speech normal, distal neuro normal - Left hand, oriented - X2 Psychiatric: mood/affect normal Skin: no rash, warm/dry Medical Decision Making Diagnostic Impression: Primary Impression: Atrial fibrillation with rapid ventricular response Additional Impressions: Proximal humerus fracture Qualified Codes: S42.295A - Other nondisplaced fracture of upper end of left humerus, initial encounter for closed fracture Cor pulmonale Edema Qualified Codes: R60.9 - Edema, unspecified ER Course Patient presents post mechanical fall with left shoulder pain and anasarca. Without the latter this would be straightforward trauma evaluation however because of the anasarca we need to evaluate his fluid status and whether he is in congestive heart failure. Differential includes contusion, sprain, rotator cuff tear or fracture. Based on the clinical exam the shoulder appears fractured. Patient will be evaluated with EKG, labs, chest x-ray and left shoulder x-ray. The patient will be treated with morphine and Zofran. The patient will need a shoulder immobilizer after x-rays were performed. We need to ascertain whether the family is able to take care of him at home with his inability to use his left arm. The fact he is on Pradaxa makes him at increased risk for bleeding complications due to possible fracture. As there was no head trauma CT of the head is not indicated. On the earth burner his rate is rapid. The patient will be given a dose of metoprolol. EKG with rapid atrial fibrillation and ST inversions septally. CBC and CMP unremarkable. BNP 1356. Chest x-ray without congestive failure. Heart size normal. Pacemaker. Shoulder x-ray with fracture. Immobilizer ordered. Heart rate improved with metoprolol. Pain improved with immobilization. Position excellent and distal neurovascular normal as checked by me. Patient admitted to observation telemetry initially presented to Dr Bone who declined the patient. Admitted to Dr. Fong. Consultation obtained with Dr. Alarcon. Laboratory Tests Test 06/07/19 19:15 White Blood Count 8.5 K/UL (4.8-10.8) Red Blood Count 4.75 M/UL (4.70-6.10) Hemoglobin 12.4 G/DL (14.2-18.0) L Hematocrit 40.8 % (42.0-52.0) L Mean Corpuscular Volume 86 FL (80-99) Mean Corpuscular Hemoglobin 26.2 PG (27.0-31.0) L Mean Corpuscular Hemoglobin Concent 30.5 G/DL (32.0-36.0) L Red Cell Distribution Width 13.0 % (11.6-14.8) Platelet Count 232 K/UL (150-450) Mean Platelet Volume 7.8 FL (6.5-10.1) Neutrophils (%) (Auto) 72.0 % (45.0-75.0) Lymphocytes (%) (Auto) 12.2 % (20.0-45.0) L Monocytes (%) (Auto) 14.5 % (1.0-10.0) H Eosinophils (%) (Auto) 0.2 % (0.0-3.0) Basophils (%) (Auto) 1.1 % (0.0-2.0) Prothrombin Time 10.3 SEC (9.30-11.50) Prothrombin Time INR 1.0 (0.9-1.1) PTT 27 SEC (23-33) Sodium Level 142 MMOL/L (136-145) Potassium Level 3.9 MMOL/L (3.5-5.1) Chloride Level 105 MMOL/L (98-107) Carbon Dioxide Level 25 MMOL/L (21-32) Anion Gap 12 mmol/L (5-15) Blood Urea Nitrogen 9 mg/dL (7-18) Creatinine 1.2 MG/DL (0.55-1.30) Estimate Glomerular Filtration Rate mL/min (>60) Glucose Level 107 MG/DL (74-106) H Calcium Level 9.4 MG/DL (8.5-10.1) Total Bilirubin 0.4 MG/DL (0.2-1.0) Aspartate Amino Transferase (AST) 18 U/L (15-37) Alanine Aminotransferase (ALT) 14 U/L (12-78) Alkaline Phosphatase 107 U/L (46-116) Troponin I 0.000 ng/mL (0.000-0.056) Pro-B-Type Natriuretic Peptide 1356 pg/mL (0-125) H Total Protein 6.7 G/DL (6.4-8.2) Albumin 2.7 G/DL (3.4-5.0) L Globulin 4.0 g/dL Albumin/Globulin Ratio 0.7 (1.0-2.7) L EKG Diagnostic Results Rate: normal Rhythm: other - Atrial fibrillation ST Segments: no acute changes - Nonspecific ST-T wave changes septally Rhythm Strip Diag. Results EP Interpretation: yes Rhythm: no PVC's, no ectopy, other - She will fibrillation rate 100 Chest X-Ray Diagnostic Results Chest X-Ray Diagnostic Results : Chest X-Ray Ordered: Yes # of Views/Limited/Complete: 1 View Indication: Other EP Interpretation: Yes Interpretation: no consolidation, no effusion, no pneumothorax, other - Pacemaker Impression: Other Electronically Signed by: Electronically signed by Munir Quintana MD Other X-Ray Diagnostic Results Other X-Ray Diagnostic Results : X-Ray ordered: Left shoulder # of Views/Limited Vs Complete: 3 View Indication: Pain EP Interpretation: Yes Interpretation: no dislocation, no soft tissue swelling, other - Comminuted fracture Impression: Other Electronically Signed by: Electronically signed by Munir Quintana MD Last Vital Signs Date Time Temp Pulse Resp B/P (MAP) Pulse Ox O2 Delivery O2 Flow Rate FiO2 06/07/19 22:26 97.5 65 20 135/74 99 Room Air Status: improved Disposition: PLACE IN OBSERVATION Condition: Serious Munir Quintana MD Jun 07, 2019 19:19
[2019-06-07] MEDS ORDERED: Metoprolol 5mg/5ml Inj IVP STA (19:20)
[2019-06-07 19:25] LABS: BASOPHILS % (AUTO) 1.1 % (0.0-2.0); EOSINOPHILS % (AUTO) 0.2 % (0.0-3.0); HEMATOCRIT 40.8 % (42.0-52.0); HEMOGLOBIN 12.4 G/DL (14.2-18.0); LYMPHOCYTES % (AUTO) 12.2 % (20.0-45.0); MEAN CORPUSCULAR VOLUME 86 FL (80-99); MONOCYTES % (AUTO) 14.5 % (1.0-10.0); PLATELET COUNT 232 K/UL (150-450); RED BLOOD COUNT 4.75 M/UL (4.70-6.10); WHITE BLOOD COUNT 8.5 K/UL (4.8-10.8)
--- NOTE | 2019-06-07 19:32 | NUR ---
HAND-OFF: Report given to Maryjane FLOWERS.
[2019-06-07 19:36] LABS: ANION GAP 12 mmol/L (5-15); BLOOD UREA NITROGEN 9 mg/dL (7-18); CALCIUM 9.4 MG/DL (8.5-10.1); CARBON DIOXIDE 25 MMOL/L (21-32); CHLORIDE 105 MMOL/L (98-107); CREATININE 1.2 MG/DL (0.55-1.30); POTASSIUM 3.9 MMOL/L (3.5-5.1); SODIUM 142 MMOL/L (136-145)
[2019-06-07 19:47] LABS: ALANINE AMINOTRANSFERASE 14 U/L (12-78); ALBUMIN 2.7 G/DL (3.4-5.0); ALBUMIN/GLOBULIN RATIO 0.7 (1.0-2.7); ALKALINE PHOSPHATASE 107 U/L (46-116); ASPARTATE AMINO TRANSFERASE 18 U/L (15-37); BILIRUBIN,TOTAL 0.4 MG/DL (0.2-1.0)
--- NOTE | 2019-06-07 20:00 | NUR ---
Devan longoria in ED - 06/07/19 at 2007 by MAGGIE Macoline just arrived.
--- NOTE | 2019-06-07 20:17 | Diagnostic Imaging Report ---
EXAM: XR Left Shoulder Complete, 2 or More Views CLINICAL HISTORY: TRAUMA TECHNIQUE: Two or more views of the left shoulder. COMPARISON: No relevant prior studies available. FINDINGS: Bones joints: Oblique surgical neck fracture of the humerus with mild comminution. No dislocation. Soft tissues: Unremarkable. IMPRESSION: Oblique surgical neck fracture of the humerus with mild comminution.
--- NOTE | 2019-06-07 20:18 | Diagnostic Imaging Report ---
EXAM: XR Chest, 1 View CLINICAL HISTORY: TRAUMA TECHNIQUE: Frontal view of the chest. COMPARISON: No relevant prior studies available. FINDINGS: Lungs: Unremarkable. No consolidation. Pleural space: Unremarkable. No pneumothorax. Heart: Unremarkable. No cardiomegaly. Mediastinum: Unremarkable. Bones joints: Unremarkable. IMPRESSION: No radiographic evidence of traumatic injury to the chest.
--- NOTE | 2019-06-07 21:12 | NUR ---
Face sheet, EKG, MD dictation and clinicals faxed to [phone] as requested.
--- NOTE | 2019-06-07 22:12 | NUR ---
ED Nurse Note: Called tele and rendered report to Jose RN, patient unable to reconcile all medications and indicated before departure to floor that he does not take any medications for his blood pressure. Will inform receiving nurse at transport. Patient vital signs stable.
[2019-06-07 22:26] VITALS: BP 135/74
--- NOTE | 2019-06-07 22:30 | NUR ---
NURSE NOTES: Received report from Maikel Mullen RN. regarding patient's arrival to the TELE floor from ED. Arrived via gurney accompanied by ED nurse and tech. Ambulated to the floor with minimal assist. Left arm immobilized d/t post fall FX that had happened prior to admission. Belongings checked and noted at bedside with RN, and head to toe assessment initiated with no skin issues noted. Will call admitting MD for orders. IV line intact and patent SL, placed on continuous cardiac monitoring per protocol. Safety precaution in place; siderails X3 up, call light within reach, bed in lowest position, brakes and alarm on at all times. Needs and wants anticipated and attended, will continue plan of care and monitor. Addendum: 06/07/19 at 2338 by JOSE MANUEL KIM RN ambulated to the bed from the rcloster with minimal assist.
--- NOTE | 2019-06-07 22:30 | NUR ---
ED Nurse Note: Patient escorted to tele accompanied by an semiconductor equipment technician and an RN without incident.
[2019-06-07 22:40] VITALS: BP 173/87
--- NOTE | 2019-06-07 23:19 | NUR ---
NURSE NOTES: Called and spoke with patient's sister (Bhavya Mcbride) regarding patient's current medication, said that " I will try to bring it tomorrow". Will continue to monitor.
--- NOTE | 2019-06-07 23:30 | NUR ---
NURSE NOTES: Called and left message for Nhung Fong MD. regarding patient's arrival on the unit and for admit orders. Awaiting call-back.
[2019-06-08] VITALS (9 sets, daily range): BP systolic 122–160; BP diastolic 63–95
[2019-06-08] MEDS ORDERED: dilTIAZem HCl 25mg/5ml Inj IVP ONE
[2019-06-08] MEDS ORDERED: Morphine Sulfate 2mg/ml Inj(IV/IM USE ONLY) IVP PRN (00:15)
--- NOTE | 2019-06-08 00:30 | NUR ---
NURSE NOTES: New orders received and carried out per Nhung Fong MD. Will continue to monitor.
--- NOTE | 2019-06-08 00:55 | NUR ---
NURSE NOTES: Cardizem 20mg IVP X1 ordered for Afib with RVR per MD. initial VS before admin BP 142/95 P 103 post Cardizem IVP VS BP 122/84 P 85 Rhythm strip obtained while medicine being given. See patient's chart
--- NOTE | 2019-06-08 03:41 | NUR ---
NURSE NOTES: Patient in bed asleep with no S/S of distress at this time. Will continue to monitor.
--- NOTE | 2019-06-08 06:52 | NUR ---
CASE MANAGEMENT: INITIAL REVIEW 84 YO M PRESENTED TO OUR ED FROM HOME CC: LEFT SHOULDER PAIN PMHx: PACER. HTN. ASTHMA. SI:A FIB W/ RVR T 97.5 HR 91 RR 18 B/P 102/28 SATS 94% ON RA GLU 107 BNP 1356 IS: MORPHINE IV X1 ZOFRAN IV X1 LOPRESSOR IV X1 EKG with rapid atrial fibrillation and ST inversions septally. SHOULDER XRAY IMPRESSION: Oblique surgical neck fracture of the humerus with mild comminution. CXR IMPRESSION: No radiographic evidence of traumatic injury to the chest. PATIENT ADMITTED TO TELE 06/07/2019 @ 0830 DCP: PATIENT TO BE DISCHARGED TO HOME ONCE MEDICALLY CLEARED. PLAN OF CARE: CARDIO EVAL Addendum: 06/08/19 at 1211 by Shona Ni CM INTERQUAL MET
--- NOTE | 2019-06-08 07:27 | NUR ---
NURSE NOTES: Received patient from Tommy Garcia. Patient is lying comfortably in bed. Awake and alert. No complain of pain or discomfort. Left shoulder immobilizer/sling in place. Bed locked to lowest position, alarm activated, bed locked to lowest position. Instructed patient to call for help when he needed to get up or use the bathroom. call montoya within patients reach. will attend to patients needs and monitor patient.
--- NOTE | 2019-06-08 07:27 | NUR ---
HAND-OFF: Report given to Sanjana Lazaro RN. patient in bed with no S/S of distress. Endorsed plan of care.
[2019-06-08] MEDS ORDERED: FEOSOL1 TAB ORAL (10:38)
[2019-06-08] MEDS ORDERED: COREG3.125 MG ORAL (10:38)
[2019-06-08] MEDS ORDERED: VITAMIN C500 M1 ORAL (10:38)
[2019-06-08] MEDS ORDERED: FOLIC ACID1 M1 PO (10:38)
[2019-06-08] MEDS ORDERED: LIPITOR80 MG ORAL (10:38)
[2019-06-08] MEDS ORDERED: tricor (10:38)
[2019-06-08] MEDS ORDERED: FLOMAX0.4 MG ORAL (10:38)
[2019-06-08] MEDS ORDERED: OMEPRAZOLE40 M1 ORAL (10:38)
[2019-06-08] MEDS ORDERED: VITAMIN D-32000 UNI1 PO (10:38)
[2019-06-08] MEDS ORDERED: COZAAR25 MG ORAL (10:38)
[2019-06-08] MEDS ORDERED: LORazepam 0.5mg tab ORAL PRN (15:45)
[2019-06-08] MEDS: Vitamin B Complex Tab ORAL SCH (17:08)
[2019-06-08] MEDS: cefTRIAXone 1 GM in D5W 55 ML IVPB SCH (17:09)
[2019-06-08] MEDS: dilTIAZem HCl 60mg tab ORAL SCH ×2 (17:49→23:33)
--- NOTE | 2019-06-08 18:45 | Progress Note ---
DATE: 06/08/2019 SUBJECTIVE: The patient has increasing cough and congestion. Pain on his left shoulder persists. PHYSICAL EXAMINATION: VITAL SIGNS: Blood pressure 146/88, pulse 104, respiratory rate 18, and afebrile. LUNGS: Few rhonchi. EXTREMITIES: Left shoulder immobilized. HEART: Irregularly irregular rhythm. Normal S1, S2. ABDOMEN: Soft. No edema. IMPRESSION: 1. Mechanical fall. 2. Left humerus fracture with pain. 3. Paroxysmal atrial fibrillation with rapid ventricular response. 4. 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 5. COPD with chronic bronchitis. PLAN: 1. Respiratory hygiene. 2. Empiric antimicrobials. 3. Discontinue Pradaxa in favor of Lovenox as surgical plan may be required. 4. Advance rate control and blood pressure control regimen. 5. Vitamin supplements. 6. Withdrawal precautions. 7. Awaiting Orthopedic consultation. Munir Fong M.D. DR: Bisi JOB#: [id number] CC:
--- NOTE | 2019-06-08 19:30 | NUR ---
HAND-OFF: Report given to Tommy Morrison.Patient care endorsed.
[2019-06-08] MEDS: Albuterol/Ipratropium 3ml neb HHN SCH (19:46)
--- NOTE | 2019-06-08 19:56 | NUR ---
NURSE NOTES: RECEIVED PATIENT RESTING IN BED, NO COMPLAINTS OF PAIN IN LEFT ARM AT THIS TIME. FALL PRECAUTIONS IN PLACE: CALL LIGHT AND BEDSIDE TABLE WITHIN REACH, BED IN LOW POSITION AND BED ALARM ON ZONE 2. WILL CONTINUE WITH PLAN OF CARE.
--- NOTE | 2019-06-08 20:15 | History and Physical Report ---
DATE OF ADMISSION: 06/07/2019 REASON FOR ADMISSION: Shoulder fracture and rapid atrial fibrillation. HISTORY OF PRESENT ILLNESS: This is an 84-year-old male. He woke up this morning and tripped on his porch while trying to get to the bathroom. He usually walks with a cane, but apparently did not have it at that moment. He fell forward put his entire body weight onto his left shoulder. Now, he noted severe pain and came to the emergency room. This pain also radiated to his back and chest pain. The patient was seen in the emergency room and noted to have rapid atrial fibrillation, but has a permanent pacemaker. He takes anticoagulation chronically. PAST MEDICAL HISTORY: 1. Permanent pacemaker. 2. Atrial fibrillation. 3. COPD. 4. Hypertension. 5. BPH. 6. Hyperlipidemia. 7. Hypertriglyceridemia. ALLERGIES: None known. MEDICATIONS: Prior to admission include amlodipine 2.5 daily, vitamin C 500 daily, Lipitor 80 daily, Coreg 3.125 daily, Pradaxa 75 twice a day, Folate 1 daily, iron 325 daily, vitamin D 2000 daily, losartan 25 daily, omeprazole 40 daily, Flomax 0.4 daily, TriCor 145 daily, B complex one tablet daily. SOCIAL HISTORY: Moderate alcohol use. Active smoker. No substance abuse. REVIEW OF SYSTEMS: He notes cough with some sputum production over the past 2 days. He has not received a flu vaccination this season. There is no history of diabetes or thyroid disorder. There is no prior history of seizures or stroke. He does have constipation and has occasionally difficulty getting to the bathroom on time when he takes stool softeners and usually wears a diaper. He does have prostatic hypertrophy. There is no history of prostate cancer known. PHYSICAL EXAMINATION: VITAL SIGNS: Afebrile, blood pressure 115/79, pulse 110, respiratory rate 20. NECK: Supple. Jugular venous pressure normal. HEENT: Conjunctivae are pink. Sclerae are anicteric. Oropharynx clear. LUNGS: Few rhonchi. CARDIAC: Irregularly irregular rhythm. Rapid rate. Normal S1, S2. ABDOMEN: Soft, nontender. EXTREMITIES: Internal rotation right shoulder. Lower extremities are without edema. There is a good preparation supervisor canning on both hands. LABORATORY DATA: White count 8.5, hemoglobin 12.4. Potassium 3.9, BUN 9, creatinine 1.2. Troponin 0. Natriuretic peptide 1356. Albumin 2.7. Liver function tests within normal limits. INR is 1. IMPRESSION: 1. Mechanical fall. 2. neck fracture of the humerus with comminution. 3. Paroxysmal atrial fibrillation with rapid ventricular response. 4. Hypertensive heart disease. 5. History of hyperlipidemia. 6. Coagulopathy due to Pradaxa. 7. History of moderate alcohol use. PLAN: 1. Pain control. 2. Rate control of atrial fibrillation. 3. Hold Pradaxa. 4. Add Lovenox as the patient may require surgical intervention. 5. Vitamin supplements. 6. Withdrawal precautions. 7. Orthopedic consultation. 8. Respiratory hygiene. 9. Empiric antimicrobials. 10. Follow up chest radiograph. Munir Fong M.D. DR: Bisi JOB#: [id number] CC:
[2019-06-08] MEDS: Tamsulosin 0.4mg cap ORAL SCH (20:53)
[2019-06-08] MEDS ORDERED: Enoxaparin 60mg Inj SUBQ SCH (21:00)
[2019-06-08] MEDS: Enoxaparin 80mg Inj SUBQ SCH (21:21)
[2019-06-09] VITALS: BP 156/86
[2019-06-09] MEDS: Albuterol/Ipratropium 3ml neb HHN SCH ×4 (00:04→20:39)
[2019-06-09 04:00] VITALS: BP 130/77
[2019-06-09] MEDS: dilTIAZem HCl 60mg tab ORAL SCH ×3 (05:15→17:08)
--- NOTE | 2019-06-09 05:53 | NUR ---
HAND-OFF: Report given to Marcus FELIX RN. PATIENT ASLEEP, NO SIGNS OF DISTRESS NOTED.
--- NOTE | 2019-06-09 07:41 | NUR ---
NURSE NOTES: Report received from KRISTIE Greenberg. Patient is lying in bed with no signs of distress; A+Ox4, denies pain/SOB. Respirations are even and unlabored on 2 L NC. IV site is intact and saline locked. Bed is at lowest position, brakes engaged, siderails x2, bed alarm on, and call light within reach. Pt is in stable condition at this time.
[2019-06-09 08:00] VITALS: BP 107/71
--- NOTE | 2019-06-09 09:20 | NUR ---
RADIOLOGY DEPT. CHEST X-RAY DONE BY TECH:RIANNA LIEBERMAN.JUDI
[2019-06-09] MEDS: Enoxaparin 80mg Inj SUBQ SCH ×2 (09:43→21:36)
[2019-06-09] MEDS: Vitamin D 1000 IU Tab ORAL SCH (09:43)
[2019-06-09] MEDS: Vitamin B Complex Tab ORAL SCH (09:43)
--- NOTE | 2019-06-09 10:53 | NUR ---
*-* NO INSURANCE INFORMATION IN THE BAR UNABLE TO SEND CLINICALS AND REVIEWS *-*
[2019-06-09 12:00] VITALS: BP 122/62
--- NOTE | 2019-06-09 13:50 | NUR ---
P.T Note: P.T evaluation completed and tx initiated. Please refer to P.T evaluation for current functional status. Pt is alert, O x 4 , pleasant and cooperative. Pt reports c/o pain on the L arm 3/10 at rest aggravated by movement /touch pressure 10/10 ( currently wears a shoulder immobilizer) which affects overall functional mobility performance and safety. Pt r currently require MIN A X 1 for bed mobilities, MOD A x 1 transfers and gait activities using the straight cane. Overall fair activity tolerance. Skilled P.T service is warranted to increase strength, balance and activity tolerance to increase functional mobility independence and safety to facilitate return return to PLOF during stay. Recommend SNF for short term rehab VS home with P.T at [place]. Thank you for this referral.
--- NOTE | 2019-06-09 14:31 | NUR ---
CASE MANAGEMENT: REVIEW 06/09/19 SI:A FIB W/ RVR; EDEMA; PROXIMAL HUMERUS FX PMH: PACER. HTN. ASTHMA. 98.1 98 18 107/71 98% RA IS: IV CEFTRIAXONE Q24H LOVENOX SQ Q12 CARDIZEM PO Q6H PROTONIX PO QD ALBUTEROL HHN Q6/PRN : 2E TELE UNIT DCP: PATIENT TO BE DISCHARGED TO HOME ONCE MEDICALLY CLEARED. PLAN: PT EVAL ST BEDSIDE SP CX ORTHO CONSULT
--- NOTE | 2019-06-09 14:35 | Diagnostic Imaging Report ---
Indication: Shortness of breath Technique: One view of the chest Comparison: 06/07/2019 Findings: There is a band of atelectasis in the left perihilar region. The lungs and pleural spaces are otherwise clear. Heart size is normal. Left chest pacemaker is again demonstrated. Impression: Left perihilar atelectasis. No acute process otherwise
--- NOTE | 2019-06-09 14:38 | NUR ---
ST NOTE: REFERRED BY DR GARRISON FOR A SWALLOW EVAL, SEE FULL REPORT TO FOLLOW. DYSPHAGIA RISK FACTORS FOR THIS 84 Y.O.M: AF WITH RAPID VENTRICULAR RESPONSE, SHOULDER FX, MULTIPLE TRAUMA AND FALL H/O ON GERD MEDS, COPD, PACEMAKER, HTN, SMOKING 30 YEARS (QUIT LAST MONTH) ONE PPD. MODERATE ALCOHOL USED, HYPERTENSIVE HEART DZ. AT HOME ON SOFT DIET AND THIN LIQUIDS (ADMITS HE SOMETIMES COUGHS ON WATER). NOW ON REG DIET TYPE AND TEXTURE AND THIN LIQUIDS (INTAKE 10% OR 75%). PER RN, PT IS C/O PROBLEMS WITH SOLIDS GOING DOWN HIS THROAT AND HE HAS TO COUGH IT UP. ALSO C/O LOTS OF PHLEGM COMING UP. ON ROOM AIR RR IS 18. NO POLST/AD REGARDING ARTIFICIAL NUTRITION IF NEEDS. PER PT AT HOME HE WAS ON A REGULAR TEXTURE DIET AND THIN LIQUIDS. SAYS HE CHEWS FOOD NOW AND IT IT WON'T GO DOWN HIS THROAT AND COMES RIGHT UP. HAS UPPER AND LOWER PARTIALS AT HOME FOR MOLARS MOSTLY BUT HE DOES NOT WEAR THEM WHEN HE EATS. ABLE TO EXPRESS NEEDS AND VOICE IS CLEAR. 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 GROSSLY FUNCTIONAL SWALLOW WITH THIN LIQUIDS VIA STRAW SEQUENTIAL SIPS BUT DISCONTINUED DRINKING AFTER A FEW SIPS (NO SOB NOR OVERT ASPIRATION) ? PERSONAL PREFERENCE GROSSLY FUNCTIONAL WITH PUREED TSP AND MASTICATED 1/2 SALTINE CRACKER RECOMMENDATIONS: CONSIDER COMPLETING MOD BARIUM SWALLOW STUDY (MBSS) IP OR OP IF DC TO FURTHER ASSESS SWALLOW, DETERMINE SILENT ASP RISK, AND ATTEMPT TRIAL TX CONSIDER DOWNGRADING TO [facility] SOFT FINELY CHOPPED AND CONTINUE WITH THIN LIQUIDS USING POSTED ASP/REFLUX PRECAUTIONS WITH ASSIST WITH MEALS. CONSIDER SENDING [facility] [place] [facility] IF NEEDS AND PER RD RECOMMENDATIONS. EDUCATED/TRAINED KRISTIE CHRISTIAN IN POSTED PRECAUTIONS. SKILLED DYSPHAGIA MANAGEMENT AND TX IF INDICATED POST MBSS.
[2019-06-09 16:00] VITALS: BP 138/62
[2019-06-09] MEDS: cefTRIAXone 1 GM in D5W 55 ML IVPB SCH (17:04)
--- NOTE | 2019-06-09 19:22 | NUR ---
HAND-OFF: Report given to KRISTIE West. Pt is in stable condition; plan of care endorsed.
[2019-06-09 20:00] VITALS: BP 137/84
--- NOTE | 2019-06-09 20:02 | NUR ---
NURSE NOTES: Received pt from KRISTIE Valdez. Pt awake, alert, and talkative. Bed in lowest position. Call light within reach. Will continue to monitor.
[2019-06-09] MEDS: Tamsulosin 0.4mg cap ORAL SCH (21:31)
[2019-06-10] VITALS: BP 113/82
[2019-06-10] MEDS: dilTIAZem HCl 60mg tab ORAL SCH ×4 (00:27→18:23)
[2019-06-10] MEDS: Albuterol/Ipratropium 3ml neb HHN SCH ×3 (01:00→13:00)
[2019-06-10] MEDS ORDERED: traMADol 50mg tab ORAL PRN (01:30)
[2019-06-10 04:00] VITALS: BP 126/72
--- NOTE | 2019-06-10 04:30 | Consultation ---
DATE OF CONSULTATION: 06/08/2019 CONSULTING PHYSICIAN: Paresh Alarcon M.D. CHIEF COMPLAINT: Left shoulder pain. HISTORY OF PRESENT ILLNESS: The patient is a pleasant 84-year-old gentleman, who sustained a mechanical fall. He was brought to the hospital yesterday, diagnosed with a fracture of his humerus and therefore Orthopedic consultation was obtained for further care and recommendation. The patient has pain in the left shoulder with range of motion. Denies any numbness or tingling. PAST MEDICAL HISTORY: Reviewed in the intake chart. PAST SURGICAL HISTORY: Reviewed in the intake chart. MEDICATIONS: Reviewed in the intake chart. PHYSICAL EXAMINATION: EXTREMITIES: There is marked swelling in the left arm. The patient has moderate discomfort. Radial and ulnar pulses +2. IMAGING: Imaging studies show a the proximal humerus fracture, varus alignment. ASSESSMENT: Left proximal humerus fracture. DISCUSSION: At this point, treatment options. I discussed that he does have a fracture. It should heal within varus along the way to correct the overall alignment surgery in a formal plate fixation. Given his underlying osteoporosis, medical comorbidities, high risk of failure at that time of the procedure. Therefore at this point what I recommend is try conservative treatment to see how he does from a functional point of view and also to monitor the fracture for healing. If the fracture does not heal to be candidate for surgery, would not able to tolerate conservative treatment, but ultimately he can obtain surgery as well. At this point, what I recommend is to continue the sling in 2 weeks. Repeat imaging studies and then begin Codman exercises. He will be nonweightbearing 6 to 12 weeks in the left arm until there was enough callus formation . Paresh Alarcon M.D. DR: JOS JOB#: [id number] CC: Munir Fong M.D.
--- NOTE | 2019-06-10 05:15 | Progress Note ---
DATE: 06/09/2019 CARDIOLOGY AND INTERNAL MEDICINE PROGRESS NOTE SUBJECTIVE: Less pain. congestion or shortness of breath. The patient was seen by an orthopedic and recommended for nonsurgical management with continued use of immobilizer. OBJECTIVE: VITAL SIGNS: Blood pressure 113/82, pulse 73, respirations 18, afebrile, oxygen sat 93 to 95% on room air. LUNGS: Coarse breath sounds. No wheezing. HEART: Regular rhythm and rate. Normal S1, S2. ABDOMEN: Soft. EXTREMITIES: No edema. DIAGNOSTIC DATA: Chest x-ray with atelectasis and no acute process. IMPRESSION: 1. Mechanical fall. 2. Left shoulder fracture. 3. Paroxysmal atrial fibrillation. 4. Chronic obstructive pulmonary disease with chronic bronchitis. 5. No signs of acute pneumonia. 6. History of alcohol use. PLAN: 1. Nonsurgical management. 2. Physical therapy. 3. Discontinue Lovenox. 4. Restart Pradaxa. 5. Complete five days of empiric antimicrobials. 6. Respiratory hygiene. 7. Vitamin supplements. 8. Discharge planning. Munir Fong M.D. DR: NIDIA JOB#: [id number] CC:
[2019-06-10 08:00] VITALS: BP 127/85
--- NOTE | 2019-06-10 08:01 | NUR ---
HAND-OFF: Report given to KRISTIE Atkins. Pt stable.
--- NOTE | 2019-06-10 08:08 | NUR ---
NURSE NOTES: received patient in bed awake and alert. VSS. no complain of pain or discomfort at this time, Left arm immobilizer in place. patient reminded of safety precautions and to call nurse when he needs assistance. will attend to needs and monitor patient.
[2019-06-10] MEDS: Vitamin D 1000 IU Tab ORAL SCH (09:17)
[2019-06-10] MEDS: Vitamin B Complex Tab ORAL SCH (09:18)
--- NOTE | 2019-06-10 10:23 | NUR ---
CASE MANAGEMENT:REVIEW 06/10/19 SI: S/P FALL W/LT SHOULDER FRACTURE AFIB. COPD 97.6 91 18 127/85 94% ON RA IV ROCEPHIN Q24R IS: PRADAXA PO Q12 FLOMAX PO QHS COREG PO Q12 CARDIZEM PO Q6HRS DUONEB HHN Q6HRS RTC : TELEMETRY STATUS DCP: FROM HOME
[2019-06-10 11:49] VITALS: BP 100/68
--- NOTE | 2019-06-10 14:19 | Cardiology Report ---
APPROVED REPORT EKG Measurement Heart [id number] sinus rhtym , pac, atrial pacing Low voltage QRS Prolonged QT Abnormal ECG
--- NOTE | 2019-06-10 15:30 | NUR ---
Received order from Dr. Fong to d/c patient to home health after case managers makes f/u appointment with Ortho. case managers Donna made aware. Will follow.
--- NOTE | 2019-06-10 15:39 | NUR ---
DISCHARGE PLANNED CALLED [facility] TO MAKE F/U APPOINTMENT AND SPOKE WITH NURSE BUSINESS INTELLIGENCE ANALYST, JUANITA Mann; [phone] JUANITA REQUESTED ALL CLINICALS, ORDERS AND PRESCRIPTIONS BE FAXED TO HER @ F:[phone] ~ FAXED PER JUANITA SHE WILL CONTACT PATIENT'S PCP WHO WILL IN TURN SCHEDULE APPOINTMENT FOR ORTHO F/U AND F/U XRAYS, AND CONTACT PATIENT DIRECTLY ONCE HE IS HOME PCP DR DARWIN PARKER T: [phone]
[2019-06-10 16:00] VITALS: BP 135/92
[2019-06-10] MEDS: cefTRIAXone 1 GM in D5W 55 ML IVPB SCH (16:37)
--- NOTE | 2019-06-10 16:39 | NUR ---
Social Service Note BRENDA spoke with Bell director life insurance at [employer] [phone] (p) [phone] (f). BRENDA faxed clinical information for follow up ortho appointment. Dr. Martín Ngo June 26 at 930 am [address] [place] [id number] BRENDA informed primary nurse to include scheduled appointment in discharge instructions.
--- NOTE | 2019-06-10 17:00 | NUR ---
NURSE NOTES: Received call from professor of social workBeatris regarding patient's follow up ortho appointment that is scheduled. Patient ok to discharge home today. Spoke Bell of [facility] and she said she is aware of patients discharge today. will follow.
--- NOTE | 2019-06-10 17:30 | NUR ---
NURSE NOTES: Call placed to Bhavya Mcbride, Patients sister. Made aware that patient will be discharge today. She said that she spoke with 2 case investigator of [facility] and that she was informed that her brother will be going to a sub-acute rehab because they cannot take care f him at home. she said that there is nobody available to pick him up today. i made her aware that his brother is being discharge with home health and she stated that unless that person can watch him all day and night then no one then care for him. i made patient aware of this and he said wants to go home. he called his brother and sister and they both said they cant take care of him. Beatris social media content specialist made aware. message left to Dr. Fong. Will follow.
--- NOTE | 2019-06-10 18:24 | NUR ---
NURSE NOTES: Dr. Nazario made aware of family refusing discharge home. order received to consult social work for SNF placement. will follow.
--- NOTE | 2019-06-10 19:20 | NUR ---
NURSE NOTES: Received report from KRISTIE Downing. Pt. in bed awake showing no signs of acute distress. AOx4. Respiration even and unlabored on room air. No sob noted. IV noted on Right FA 20g sl, patent and intact. Pt. noted on condom cath, patent, intact and draining with yellow clear urine. Arm sling on left arm for immobilization. Bed in lowest position, wheels locked and alarm on. Call light within reach. All needs attended and met. Will continue plan of care.
[2019-06-10 20:00] VITALS: BP 140/75
[2019-06-10] MEDS: Carvedilol 6.25mg Tab ORAL SCH (20:48)
[2019-06-10] MEDS: Tamsulosin 0.4mg cap ORAL SCH (20:48)
[2019-06-11] VITALS: BP 110/95
--- NOTE | 2019-06-11 01:01 | Progress Note ---
DATE: 06/10/2019 INTERNAL MEDICINE PROGRESS NOTE SUBJECTIVE: Shoulder pain has improved. The patient has arm immobilized. He needs assistance with ADLs. Discharge planning is in progress. Monitored rhythm, atrial fibrillation, rate is controlled. No chest pain or shortness of breath. No tremor. OBJECTIVE: VITAL SIGNS: Blood pressure 135/92, pulse 81, and respirations 18. NECK: Supple. LUNGS: Clear. CARDIAC: Irregularly irregular. Normal S1, S2. ABDOMEN: Soft. EXTREMITIES: No edema. IMPRESSION: 1. Mechanical fall. 2. Left shoulder fracture. 3. Atrial fibrillation, now rate controlled. 4. Hypertension, controlled. 5. Folate deficiency. PLAN: 1. Withdrawal precautions from alcohol. 2. Transition to long-acting drugs for rate control of atrial fibrillation. 3. Outpatient Orthopedic evaluation to follow. 4. Immobilizer of left arm for now. 5. Follow up lab studies. 6. Replace electrolytes as needed. Munir Fong M.D. DR: NIDIA JOB#: [id number] CC:
[2019-06-11 04:00] VITALS: BP 140/95
[2019-06-11 06:49] LABS: BASOPHILS % (AUTO) 0.7 % (0.0-2.0); EOSINOPHILS % (AUTO) 0.8 % (0.0-3.0); HEMATOCRIT 33.6 % (42.0-52.0); HEMOGLOBIN 10.4 G/DL (14.2-18.0); MEAN CORPUSCULAR VOLUME 85 FL (80-99); MONOCYTES % (AUTO) 10.6 % (1.0-10.0); NEUTROPHILS % (AUTO) 75.9 % (45.0-75.0); PLATELET COUNT 190 K/UL (150-450); RED BLOOD COUNT 3.96 M/UL (4.70-6.10); RED CELL DISTRIBUTION WIDTH 13.5 % (11.6-14.8); WHITE BLOOD COUNT 6.1 K/UL (4.8-10.8)
--- NOTE | 2019-06-11 07:15 | NUR ---
NURSE NOTES: Report received from KRISTIE Garcia. Pt. AOx4. In RA. Denies any pain or discomfort. R FA 20g IV, site intact. Pt. having breakfast. Patency of IV to be checked. Bed on lowest position, side rails upx2, brakes engaged. Call light within easy reach.
--- NOTE | 2019-06-11 07:37 | NUR ---
HAND-OFF: Report given to KRISTIE Ross.
[2019-06-11 07:38] LABS: ALANINE AMINOTRANSFERASE 11 U/L (12-78); ALBUMIN 2.2 G/DL (3.4-5.0); ALBUMIN/GLOBULIN RATIO 0.6 (1.0-2.7); ALKALINE PHOSPHATASE 88 U/L (46-116); ANION GAP 6 mmol/L (5-15); ASPARTATE AMINO TRANSFERASE 17 U/L (15-37); BILIRUBIN,TOTAL 0.6 MG/DL (0.2-1.0); BLOOD UREA NITROGEN 10 mg/dL (7-18); CALCIUM 9.1 MG/DL (8.5-10.1); CARBON DIOXIDE 26 MMOL/L (21-32); CHLORIDE 106 MMOL/L (98-107); POTASSIUM 3.7 MMOL/L (3.5-5.1); SODIUM 138 MMOL/L (136-145)
[2019-06-11 08:00] VITALS: BP 126/83
[2019-06-11] MEDS: Carvedilol 6.25mg Tab ORAL SCH (08:44)
[2019-06-11] MEDS: Vitamin D 1000 IU Tab ORAL SCH (08:44)
[2019-06-11] MEDS: Vitamin B Complex Tab ORAL SCH (08:44)
[2019-06-11] MEDS ORDERED: dilTIAZem HCl CD 180mg cap ORAL SCH (09:00)
--- NOTE | 2019-06-11 09:31 | NUR ---
CASE MANAGEMENT:REVIEW 06/11/19 SI: S/P FALL W/LT SHOULDER FRACTURE AFIB. COPD 96.6 73 18 126/83 96% ON RA H/H-10.4/33.6 IS:PRADAXA PO Q12 FLOMAX PO QHS COREG PO Q12 CARDIZEM PO Q6HRS DUONEB HHN Q6HRS RTC : TELEMETRY STATUS DCP: FROM HOME
--- NOTE | 2019-06-11 09:40 | NUR ---
DISCHARGE PLANNING PATIENT HAS BEEN REFERRED TO [facility] T: [phone] AWAIT RESPONSE Addendum: 06/11/19 at 1248 by ARTURO KRAFT LVN LVN [facility] UNABLE TO ACCEPT PATIENT REFERRED TO [facility]
[2019-06-11] MEDS ORDERED: FLOMAX0.4 MG ORAL (11:50)
[2019-06-11] MEDS ORDERED: DILTIAZEM 24HR180 M3 ORAL (11:51)
[2019-06-11] MEDS ORDERED: FOLIC ACID1 MG ORAL (11:52)
[2019-06-11] MEDS ORDERED: PROTONIX40 MG ORAL (11:52)
[2019-06-11] MEDS ORDERED: PRADAXA110 MG PO (11:53)
[2019-06-11] MEDS ORDERED: COREG6.25 MG ORAL (11:54)
[2019-06-11] MEDS ORDERED: ACETAMINOPHEN500 MG ORAL (11:55)
[2019-06-11 12:00] VITALS: BP 104/72
--- NOTE | 2019-06-11 15:54 | NUR ---
INSURANCE UPDATED CLINICALS and REVIEW HAVE BEEN FAXED PLEASE FAX THE REVIEW AND CLINICAL TO: CM: JUANITA POWER#[phone] FAX#[phone] REVIEWS/CLINICALS
[2019-06-11 16:00] VITALS: BP 125/90
--- NOTE | 2019-06-11 18:55 | NUR ---
NURSE NOTES: DISCHARGE NOTE: Pt. in stable condition. with VS stable. Aware of DC plans. Belongings checked, signed and filed. front desk monitor removed. IV removed. Medication teaching done. Pt. aware to follow up with Ortho. Report given to Korin, nursing central office operator supervisor at [facility] at 1710. Belongings and cane given to Dayron from [facility] ambulance. Pt. left floor safe accompanied by ambulance personnel.
--- NOTE | 2019-06-12 08:11 | Discharge Summary ---
Discharge Summary Discharge Summary _ DATE OF ADMISSION: 06/07/2019 DATE OF DISCHARGE: 06/11/2019 DISCHARGED BY: REASON FOR ADMISSION: 84 years old male with past medical history of COPD, hypertension, atrial fibrillation, permanent pacemaker, BPH, mised hyperlipidemia, ETOH use, presented to emergency department after he tripped earlier that morning while trying to get to the bathroom. Patient usually walks with cane, but apparently he did not have it at that moment. Patient apparently fell forward putting his entire body weight on his left shoulder. Patient presented with a severe pain , radiating to his back as well as a chest pain. Patient was seen in the emergency room and was noted to have rapid atrial fibrillation along with permanent pacemaker . Patient was on anticoagulation and reported compliance with medication. X-ray of the left shoulder reveal oblique surgical neck fracture of the humerus with mild comminution. Chest x-ray demonstrated no evidence of traumatic injury to the chest. Laboratory work-up revealed no leukocytosis , hemoglobin 12.4, hematocrit 40.8. Stable electrolytes and renal parameters. Troponin negative. Pro BNP 1356 . EKG revealed atrial fibrillation with rapid ventricular response. Patient's left upper extremity was placed into immobilizer. Patient was medicated for pain and received metoprolol 5 mg IV along with Cardizem 120 mg patient subsequently with some improvement in heart rate . Patient admitted to telemetry floor for further management. CONSULTANTS: Orthopedic surgery Dr. Alarcon [facility] COURSE: Patient admitted to telemetry floor. Anticoagulation with Pradaxa was hold initially for possible surgical intervention. Lovenox added for DVT prophylaxis. Patient was on withdrawal precaution. Patient started on empiric antibiotics. Orthopedic surgery consult was requested. Per orthopedic surgeon , patient had left proximal humerus fracture. Surgeon recommended conservative treatment at this time. If the fracture would not heal , then he will be a candidate for surgery. Surgeon recommended to continue sling for 2 weeks , then repeat imaging study and begin Codman exercises. Patient will be nonweightbearing 6 to 12 weeks in the left arm until there would be enough callus formation. Pain management was addressed. Supportive care provided. Patient was restarted on Pradaxa. Heart rate was controlled with Cardizem and beta-fiona. Supplemental oxygen and pulmonary toilet with bronchodilator were on board as needed. Bowel regimen instituted. Patient was counseled on abstinence from alcohol. Renal parameters and electrolytes were closely monitored. Electrolytes corrected as needed , and nephrotoxic's were avoided. [facility]. Patient was stable for transfer. FINAL DIAGNOSES: Status post mechanical fall Left proximal humerus fracture Atrial fibrillation with rapid ventricular response- resolved Hypertension- controlled Hyperlipidemia History of moderate alcohol use DISCHARGE MEDICATIONS: See Medication Reconciliation list. DISCHARGE INSTRUCTIONS: Patient was discharged to the long term facility. Follow up with medical doctor at the facility. I have been assigned to dictate discharge summary for this account. I was not involved in the patient's management. Amada Barcenas NP Jun 12, 2019 08:11
== END 2019-06-11 18:55 | DRG 563 ==
LOC: EMR 19:10 → 2E 21:19 → EDBEDREQ 22:03 → 2E 22:57
DX: S42.202A Unspecified fracture of upper end of left humerus, initial encounter for closed fracture (principal); W01.0XXA Fall on same level from slipping, tripping and stumbling without subsequent striking against object, initial encounter; Y92.008 Other place in unspecified non-institutional (private) residence as the place of occurrence of the external cause; I48.91 Unspecified atrial fibrillation; Z95.0 Presence of cardiac pacemaker; J44.9 Chronic obstructive pulmonary disease, unspecified; E78.5 Hyperlipidemia, unspecified; N40.0 Benign prostatic hyperplasia without lower urinary tract symptoms; E78.1 Pure hyperglyceridemia; Z79.01 Long term (current) use of anticoagulants; E53.8 Deficiency of other specified B group vitamins; I11.9 Hypertensive heart disease without heart failure; Z72.89 Other problems related to lifestyle; I27.81 Cor pulmonale (chronic); M81.0 Age-related osteoporosis without current pathological fracture
CPT/HCPCS: 36415; 71045; 80053; 82607; 82746; 83735; 83880; 84443; 84484; 85025; 85610; 85730; 87070; 87205; 93005; 94640; 94664; 96374; 96375; 99285; J2405; J7620

== ENCOUNTER 2019-11-10 10:42 | Inpatient (IN) | payer MEDICARE, OTHER, MEDICAID ==
[~2019-11-10] VITALS: Ht 175.3 cm; Wt 72.6 kg
[~2019-11-10 10:42] MED LIST changes: +ACETAMINOPHEN500 MG ORAL; +COREG3.125 MG ORAL; +COREG6.25 MG ORAL; +COZAAR25 MG ORAL; +DILTIAZEM 24HR180 M3 ORAL; +FEOSOL1 TAB ORAL; +FLOMAX0.4 MG ORAL; +FOLIC ACID1 M1 PO; +FOLIC ACID1 MG ORAL; +LIPITOR80 MG ORAL; +OMEPRAZOLE40 M1 ORAL; +PRADAXA110 MG PO; +PROTONIX40 MG ORAL; +VITAMIN C500 M1 ORAL; +VITAMIN D-32000 UNI1 PO; +tricor
--- NOTE | 2019-11-10 10:55 | NUR ---
ED Nurse Note: Patient was BIB live in caregiver due to generalized weakness, vomiting last night, and slured speech. Per patient he had pain all over the body. Patient presented anxious, AAO x4, VSS at this time.
[2019-11-10] MEDS ORDERED: ZITHROMAX250 MG ORAL (10:56)
[2019-11-10] MEDS ORDERED: PREDNISOLO15 MG/5 M1 ORAL (10:56)
[2019-11-10] MEDS ORDERED: ELIQUIS2.5 MG PO (10:56)
[2019-11-10 11:00] VITALS: BP 122/97
[2019-11-10] MEDS ORDERED: Morphine Sulfate 2mg/ml Inj(IV/IM USE ONLY) IVP ONE (11:00)
--- NOTE | 2019-11-10 11:05 | Emergency Room Report ---
History of Present Illness General Chief Complaint: Generalized Weakness Source: Patient, Caregiver Present Illness HPI 84-year-old male history of hypertension, heart disease, BPH presented for generalized weakness, abdominal pain nausea vomiting and chest pain. Symptoms present for the past week. He states he has had abdominal pain for the last week associated with worsening nausea and vomiting over the past 24 hours. Also complained of intermittent chest pain. Denies fevers or cough. Complains of generalized weakness. Pain in the abdomen currently about 9 out of 10 cramping and nonradiating. He denies any diarrhea or urinary complaints. Allergies: Coded Allergies: NO KNOWN ALLERGIES (Unverified Allergy, Unknown, 04/18/15) Patient History Past Medical History: see triage record Reviewed Nursing Documentation: PMH: Agreed; PSxH: Agreed Nursing Documentation-PMH Hx Cardiac Problems: Yes Hx Hypertension: Yes Hx Pacemaker: Yes Hx Asthma: Yes Hx Cancer: No Hx Gastrointestinal Problems: Yes Hx Neurological Problems: No Review of Systems All Other Systems: negative except mentioned in HPI Physical Exam Vital Signs Date Time Temp Pulse Resp B/P (MAP) Pulse Ox O2 Delivery O2 Flow Rate FiO2 11/10/19 10:45 108 22 122/97 (105) 98 Room Air Sp02 EP Interpretation: reviewed, normal General Appearance: well appearing Head: normocephalic, atraumatic Eyes: bilateral eye PERRL, bilateral eye EOMI ENT: hearing grossly normal, moist mucus membranes Neck: full range of motion, supple Respiratory: lungs clear, normal breath sounds, no rhonchi, no respiratory distress, no retraction, no wheezing Cardiovascular #1: normal peripheral pulses, no murmur, tachycardia, other - Pacemaker present Gastrointestinal: soft, distended, guarding, tenderness - Diffuse tenderness Neurologic: alert, motor strength/tone normal, director of product marketing III-XII nml as tested, oriented, oriented x3, no focal defects Skin: normal color, warm/dry Medical Decision Making Diagnostic Impression: Primary Impression: Malignant ascites Additional Impressions: Metastases to the liver Nausea & vomiting Abdominal pain ER Course Differential diagnosis included but not limited to colitis, diverticulitis, obstruction, angina, pneumonia to name a few. CT scan of the abdomen pelvis demonstrated diffuse metastatic disease of the liver, mesentery, with bony lesions in addition to most likely malignant ascites. Patient's laboratory studies demonstrate leukocytosis. Broad-spectrum antibiotics given. Due to these findings patient will be admitted the hospital for further work-up. I did inform the patient of the findings of possible malignancy. He reports a history of prostate cancer in the past that was treated. But this new finding was unknown. Due to patient's insurance he will be transferred to [facility]. Patient accepted by Dr. Case. Chest x-ray Comparison: 06/09/2019 A single view chest radiograph was obtained. Findings: There is atelectasis suspected at the right lung base. Lung volumes are low. Heart is mildly prominent. There is a pacemaker on the left. Bones are slightly osteopenic. IMPRESSION: No significant change. Mild right basal atelectasis Laboratory Tests Test 11/10/19 11:03 White Blood Count 26.0 K/UL (4.8-10.8) *H Red Blood Count 4.46 M/UL (4.70-6.10) L Hemoglobin 8.9 G/DL (14.2-18.0) L Hematocrit 28.9 % (42.0-52.0) L Mean Corpuscular Volume 65 FL (80-99) L Mean Corpuscular Hemoglobin 19.9 PG (27.0-31.0) L Mean Corpuscular Hemoglobin Concent 30.7 G/DL (32.0-36.0) L Red Cell Distribution Width 16.8 % (11.6-14.8) H Platelet Count 557 K/UL (150-450) H Mean Platelet Volume 6.2 FL (6.5-10.1) L Neutrophils (%) (Auto) % (45.0-75.0) Lymphocytes (%) (Auto) % (20.0-45.0) Monocytes (%) (Auto) % (1.0-10.0) Eosinophils (%) (Auto) % (0.0-3.0) Basophils (%) (Auto) % (0.0-2.0) Differential Total Cells Counted 100 Neutrophils % (Manual) 94 % (45-75) H Lymphocytes % (Manual) 4 % (20-45) L Monocytes % (Manual) 2 % (1-10) Eosinophils % (Manual) 0 % (0-3) Basophils % (Manual) 0 % (0-2) Band Neutrophils 0 % (0-8) Platelet Estimate Increased H Platelet Morphology Normal Hypochromasia 1+ Anisocytosis 1+ Target Cells 1+ [place] Cells 1+ Acanthocytes (Spur Cells) 1+ Prothrombin Time 13.1 SEC (9.30-11.50) H Prothrombin Time INR 1.2 (0.9-1.1) H Activated Partial Thromboplast Time 32 SEC (23-33) Sodium Level 132 MMOL/L (136-145) L Potassium Level 4.6 MMOL/L (3.5-5.1) Chloride Level 96 MMOL/L (98-107) L Carbon Dioxide Level 19 MMOL/L (21-32) L Anion Gap 18 mmol/L (5-15) H Blood Urea Nitrogen 46 mg/dL (7-18) H Creatinine 2.2 MG/DL (0.55-1.30) H Estimate Glomerular Filtration Rate 34.8 mL/min (>60) Glucose Level 152 MG/DL (74-106) H Lactic Acid Level Pending Calcium Level 8.0 MG/DL (8.5-10.1) L Total Bilirubin 0.6 MG/DL (0.2-1.0) Aspartate Amino Transferase (AST) 47 U/L (15-37) H Alanine Aminotransferase (ALT) 44 U/L (12-78) Alkaline Phosphatase 210 U/L (46-116) H Total Creatine Kinase 46 U/L (26-308) Creatine Kinase MB 0.5 NG/ML (0.0-3.6) Creatine Kinase MB Relative Index 1.0 Troponin I 0.000 ng/mL (0.000-0.056) Total Protein 6.2 G/DL (6.4-8.2) L Albumin 1.9 G/DL (3.4-5.0) L Globulin 4.3 g/dL Albumin/Globulin Ratio 0.4 (1.0-2.7) L EKG Diagnostic Results Rate: normal Other Impression Atrial fibrillation with variable rate, rate of 100 Rhythm Strip Diag. Results EP Interpretation: yes Other Impression Atrial fibrillation with variable rate, PVC Last Vital Signs Date Time Temp Pulse Resp B/P (MAP) Pulse Ox O2 Delivery O2 Flow Rate FiO2 11/10/19 10:45 108 22 122/97 (105) 98 Room Air Disposition: XFER SHT-TRM [facility] Lance Aj M.D. Nov 10, 2019 11:05
[2019-11-10 11:18] LABS: HEMATOCRIT 28.9 % (42.0-52.0); HEMOGLOBIN 8.9 G/DL (14.2-18.0); MEAN CORPUSCULAR VOLUME 65 FL (80-99); PLATELET COUNT 557 K/UL (150-450); RED BLOOD COUNT 4.46 M/UL (4.70-6.10); RED CELL DISTRIBUTION WIDTH 16.8 % (11.6-14.8)
[2019-11-10 11:30] LABS: ANION GAP 18 mmol/L (5-15); BLOOD UREA NITROGEN 46 mg/dL (7-18); CARBON DIOXIDE 19 MMOL/L (21-32); CHLORIDE 96 MMOL/L (98-107); CREATININE 2.2 MG/DL (0.55-1.30); INR 1.2 (0.9-1.1); POTASSIUM 4.6 MMOL/L (3.5-5.1); SODIUM 132 MMOL/L (136-145)
[2019-11-10 11:48] LABS: ALANINE AMINOTRANSFERASE 44 U/L (12-78); ALBUMIN 1.9 G/DL (3.4-5.0); ALBUMIN/GLOBULIN RATIO 0.4 (1.0-2.7); ALKALINE PHOSPHATASE 210 U/L (46-116); ASPARTATE AMINO TRANSFERASE 47 U/L (15-37); BILIRUBIN,TOTAL 0.6 MG/DL (0.2-1.0); CKMB 0.5 NG/ML (0.0-3.6); CREATINE KINASE 46 U/L (26-308)
--- NOTE | 2019-11-10 11:48 | Diagnostic Imaging Report ---
INDICATION: Abdominal pain TECHNIQUE: Continuous helical transaxial imaging of the abdomen and pelvis was obtained from the lung bases to the pubic symphysis. No intravenous contrast was administered. Coronal 2-D reformats were also obtained. Automatic Exposure Control was utilized. Total Dose length Product (DLP): 265.[address] Dose Index Volume (CTDIvol): 4.3 mGy Comparison: 04/18/2015 FINDINGS: Lungs: In the aortopulmonary window the mediastinum there is a 3.6 x 1.7 cm mass suspicious for malignancy. This may be adenopathy. There is a second more anterior nodule measuring 1.8 cm in diameter. Evaluation is limited by the nonadministration of IV contrast. Also this abdominal scan only images up part of the chest and mediastinum. The aorta is moderately calcified. There are coronary calcifications present. There is elevation of the right hemidiaphragm. Mild hyperlucency noted within the lungs suspicious for emphysema. There are also multiple tiny nodules present within the lungs bilaterally. Findings could be inflammatory/infectious or neoplastic. The nodules are in the order of 2 to 3 mm in size. There is a right basilar platelike density which is probably atelectasis. There is interposition of bowel between the liver and the right hemidiaphragm. There is some fluid present within the subdiaphragmatic region on the right consistent with mild ascites. Pacemaker wires are noted. Liver: There are somewhat subtle areas of a rounded low attenuation in the liver. These could represent small metastatic deposits. Evaluation with contrast CT may be helpful. Gallbladder/biliary system: No gallstones are identified. There is no evidence of intrahepatic or extrahepatic biliary ductal dilatation. Spleen: Unremarkable Pancreas: Unremarkable Kidneys/Bladder: There are several punctate calcifications within the left kidney which could be nonobstructive stones. There is no hydronephrosis.. Adrenal glands: There is prominence of the left adrenal gland. This could be incidental benign adenoma but metastatic disease is not excluded. Bowel: There is no evidence of bowel obstruction. There are diverticula within the sigmoid colon. Aorta/IVC: Moderate mural calcification noted within the aorta and iliac arteries. There is a fusiform mid abdominal aortic aneurysm measuring approximately 4.6 cm. Peritoneum: There is extensive nodularity and reticulation involving the mesenteric fat in addition to a small amount of ascites. Carcinomatosis is not excluded.. Bones: Bones are markedly heterogeneous. There is areas of abnormal sclerosis suspicious for metastatic neoplasm. IMPRESSION: Suspicion of widespread metastatic neoplasm involving the bones, liver, mediastinum, probably mesentery. Evaluation significantly limited by the nonadministration of IV and oral contrast material. Minimal ascites which could be malignant. Nonobstructive stones suspected left kidney. Prominent left adrenal gland, nonspecific. Benign versus malignant neoplasm. 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 Multiple tiny nodules within the lungs nonspecific. This could be infectious or due to neoplasm. Note: Evaluation of solid organs is limited on non contrast imaging. The CT scanner at [facility] is accredited by the [employer] and the scans are performed using dose optimization techniques as appropriate to a performed exam including Automatic Exposure control.
[2019-11-10] MEDS ORDERED: Piperacillin/Tazobactam 3.375 GM in NS 110 ML IVPB ONE (12:15)
--- NOTE | 2019-11-10 12:50 | Diagnostic Imaging Report ---
Indication: Dyspnea Comparison: 06/09/2019 A single view chest radiograph was obtained. Findings: There is atelectasis suspected at the right lung base. Lung volumes are low. Heart is mildly prominent. There is a pacemaker on the left. Bones are slightly osteopenic. IMPRESSION: No significant change. Mild right basal atelectasis
[2019-11-10 14:55] VITALS: BP 110/63
--- NOTE | 2019-11-10 15:05 | NUR ---
ED Nurse Note: Patient is resting, eyes close, VSS at this time, no acute distress noted.
[2019-11-10 16:25] VITALS: BP 95/52
--- NOTE | 2019-11-10 16:25 | NUR ---
ED Nurse Note: Patient was admited to TELE due to generalized weakness, spreaded malignant cancer. Patient was transfered to the unit via gurney, by [facility] protocol, with all belongings. Patient AAO x4, VSS at this time, skin is war to touch.
--- NOTE | 2019-11-10 16:30 | NUR ---
NURSE NOTES: AOx3. In RA. Complains of pain 12/11. IV R H and L AC flushed, SL. VS stable. ST on monitor (102). Came in with diaper and dried stool, cleaned and impaction noticed, will address to MD. Belongings checked, black flip phone without teaching specialists and sweat pant singed and filed. Will continue to monitor.
--- NOTE | 2019-11-10 17:05 | NUR ---
NURSE NOTES: Left a message to Dr. Way regarding admission orders. Waiting for a call back.
--- NOTE | 2019-11-10 17:16 | NUR ---
NURSE NOTES: Left a message to Dr. Way, regarding Pt's arrival and admission orders. Talked to Sol. Waiting for a call back.
[2019-11-10] MEDS ORDERED: Lactulose 20gm/30ml UDC ORAL PRN (17:45)
[2019-11-10] MEDS ORDERED: Morphine Sulfate 2mg/ml Inj(IV/IM USE ONLY) IVP PRN (17:45)
--- NOTE | 2019-11-10 19:06 | NUR ---
Received a call from Kimberly, spring encaser at [facility].( Pt's insurance, ) per Kimberly, patient need to transfer to [facility], Rm. 4133 Phone # to give report . Receiving . Dr. Terrell Case. Call [facility] for transport. Authorization # [id number]. will call Dr. Way to inform him .
--- NOTE | 2019-11-10 19:30 | NUR ---
HAND-OFF: Report given to KRISTEI Small Plan of care endorsed.
[2019-11-10 20:00] VITALS: BP 100/55
--- NOTE | 2019-11-10 23:00 | NUR ---
NURSE NOTES: [facility] came to bring pt to [facility] Room #4133. Pt in stable condition. notified. Pt family notified. Gave report to receiving RN Tessy at [facility].
--- NOTE | 2019-11-10 23:00 | History and Physical Report ---
DATE OF ADMISSION: 11/10/2019 HISTORY OF PRESENT ILLNESS: The patient is an 84-year-old male, came from home and he was found to have a severe obstipation and has no bowel movement for last few days. Also, complaining of having mild abdominal pain. The patient had a CT scan of abdomen showing that the patient has metastatic lesions in the liver as well as the bones. The patient is currently alert and oriented. The patient denies any history of hypertension, diabetes, and he lives at home with the family. MEDICATIONS: None known. PHYSICAL EXAMINATION: GENERAL: This is an elderly male who looks dehydrated. The patient is otherwise comfortable. VITAL SIGNS: Blood pressure 140/70, pulse 74, respirations 18, no fever. HEENT: NAD. CHEST: Bilaterally clear. CARDIOVASCULAR: Regular rhythm. ABDOMEN: Distended. Mild tenderness on palpation. GENITOURINARY: Deferred. LABORATORY AND DIAGNOSTIC DATA: Not available. ASSESSMENT: 1. Severe obstipation. 2. Abdominal pain. 3. Metastatic lesions in liver and bones. 4. Dehydration. PLAN: 1. We will admit on medical floor. 2. Restart IV fluids. 3. Lactulose and Colace. 4. Consider GI consult and also consider Hematology/Oncology consult. Hu Way M.D. DR: JEZ JOB#: [id number] CC:
--- NOTE | 2019-11-11 15:13 | Discharge Summary ---
Discharge Summary Discharge Summary _ DATE OF ADMISSION: 11/10/2019 DATE OF DISCHARGE: 11/10/2019 DISCHARGED BY: Dr. Way REASON FOR ADMISSION: 84 years old male with past medical history of hypertension, pacemaker, asthma, BPH, presented with complaint of generalized weakness, abdominal pain with associated nausea , vomiting and chest pain. Symptoms were present intermittently for the past week. Abdominal pain was associated with worsening nausea and vomiting over the past 24 hours. Chest pain was intermittent. He denied fever or chills. No cough. Patient reported generalized weakness. Abdominal pain reported as cramping , nonradiating , 9 out of 10 on a scale 1-10, no diarrhea ,no urinary complaints . Upon evaluation patient was slightly tachycardic with heart rate up to 110 and tachypneic with respiratory rate 22 . Laboratory work-up revealed significant leukocytosis WBC 26, hemoglobin 8.9, hematocrit 28.9, platelet count 557 . Sodium 132. BUN 46 creatini ne 2.2. Glucose 1252. Troponin negative. CK 46. EKG revealed some PVC . Chest x-ray revealed no acute cardiopulmonary pathology .Pacemaker on the left noted. Bones were slightly osteopenic . Lung volumes were low . Heart was mildly prominent . Atelectasis suspected at the right lung base . Patient started on broad-spectrum antibiotics. CT scan of the abdomen and pelvis revealed suspicion of widespread metastatic neoplasm involving the bones, liver, mediastinum, probably mesentery. Prominent left adrenal gland ,nonspecific : benign versus malignant neoplasm. 4.6 cm fusiform aneurysm. Chilaiditi syndrome. Patient admitted to telemetry floor. Patient started on the IV fluids. Pain management was addressed as needed . Symptomatic care provided. HOSPITAL COURSE: Patient admitted to telemetry floor. Patient started on IV fluids and empiric antibiotics. Pain management was addressed as needed. Symptomatic treatment provided. Bowel regimen instituted. GI and hematology consults were requested. However prior to consults seeing the patient, patient was transferred via [facility] ambulance to insurance affiliated facility. Patient subsequently was transferred via [facility] ambulance to [facility] for further management as per [facility] FINAL DIAGNOSES: Widespread malignancy with metastatic lesions in liver and bone Dehydration Severe obstipation Abdominal pain to above DISCHARGE MEDICATIONS: List of medication was sent to accepting facility DISCHARGE INSTRUCTIONS: Patient was transferred to [facility] as per insurance I have been assigned to dictate discharge summary for this account. I was not involved in the patient's management. Amada Barcenas NP Nov 11, 2019 15:13
--- NOTE | 2019-11-24 09:34 | NUR ---
*-* INSURANCE *-* ALL CLINICALS AND REVIEWS HAVE BEEN FAXED TO: GARRY F: [phone]
== END 2019-11-10 23:00 | disposition short-term general hospital (02) | DRG 392 ==
LOC: EMR 12:30 → EDBEDREQ 14:41 → 2E 14:47 → EDBEDREQ 15:20
DX: K59.00 Constipation, unspecified (principal); C78.7 Secondary malignant neoplasm of liver and intrahepatic bile duct; C79.51 Secondary malignant neoplasm of bone; E86.0 Dehydration; R10.9 Unspecified abdominal pain; Z95.0 Presence of cardiac pacemaker; I72.9 Aneurysm of unspecified site
CPT/HCPCS: 36415; 71045; 74176; 80053; 82105; 82378; 82550; 82553; 84153; 84484; 85007; 85025; 85610; 85730; 93005; 96361; 96365; 96375; 99285; J2405; J7030